=== PATIENT | male | born 1960 | race Caucasian/White ===

== ENCOUNTER 2024-12-04 18:58 | Emergency (ER) | payer OTHER, SELFPAY ==
--- NOTE | ~2024-12-04 | XR_ITS ---
CLINICAL HISTORY: picc line occlusion 1 view chest x-ray Comparison: None Findings: Right central line tip proximal SVC. Probable bilateral costophrenic angle scarring. No prior studies available for comparison. Heart size normal. No bony abnormality. Impression: Bilateral scarring without acute process This document has been electronically signed by: Omer Davis MD on 12/04/2024 19:53:25
--- NOTE | 2024-12-04 19:02 | ED_ITS ---
HPI - General Adult General Chief complaint: General Medical Stated complaint: pic line clogged Time Seen by Provider: 12/04/24 20:36 Related Data Allergies Allergy/AdvReac Type Severity Reaction Status Date / Time No Known Allergies Allergy Verified 12/04/24 19:08 PMFSH Social History Social History Smoked in Last 30 Days: No Use of substances other than those prescribed or required for medical reasons: No Advance Directives: No Advance Directives Information Provided: Yes Physical Exam ED Vital Signs: BMI result Body Mass Index 19.4 Course Course Course Narrative: This is a rapid medical exam performed by Glen King NP: Additional HPI, ROS, PE not included below will be deferred to primary provider. 64 yo male accompanied by with PMHx of bowel anastamosis with recent ostomy reversal (09/30), presents to the ED today due to PICC line in R arm being blocked. He states he attempted to flush it with saline and heparin flush. states this morning line was clear, but when hooking up for TPN, could not get fluid through due to occlusion . Plan: Labs, CXR, Medications Administered Discontinued Medications Generic Name Dose Route Start Last Admin Trade Name Freq PRN Reason Stop Dose Admin Alteplase, Recombinant 2 mg 12/04/24 21:01 12/04/24 21:24 Alteplase Cath Clear 2 Mg/2 Ml Vial INTRACATH 12/04/24 21:02 2 mg ONCE ONE Administration Alteplase, Recombinant 2 mg 12/04/24 22:38 12/04/24 23:16 Alteplase Cath Clear 2 Mg/2 Ml Vial INTRACATH 12/04/24 22:39 2 mg ONCE ONE Administration Medical Decision Making Lab Data 12/04/24 19:21 12/04/24 19:21 Labs: Lab Results 12/04/24 Range/Units 19:21 WBC 7.2 (4.8-10.8) X10*3/uL RBC 3.53 L (4.60-5.80) X10*6/uL Hgb 11.0 L (14.0-18.0) g/dl Hct 33.3 L (42.0-52.0) % MCV 94.3 (80.0-98.0) fL MCH 31.2 (27.0-33.0) pg MCHC 33.0 (31.0-36.0) g/dl RDW 13.6 (11.0-16.0) % Plt Count 303 (160-400) X10*3/uL MPV 10.0 (9.4-12.4) fL Immature Gran % (Auto) 0.3 (0.0-0.4) % Neut % (Auto) 75.6 H (45-73) % Lymph % (Auto) 12.7 L (20-40) % [place] % (Auto) 8.9 (2-11) % Eos % (Auto) 2.1 (0-4) % Baso % (Auto) 0.4 (0-2) % Lymph # (Auto) 0.9 L (1.2-4.9) X10*3/uL [place] # (Auto) 0.6 (0.1-1.2) X10*3/uL Eos # (Auto) 0.2 (0.0-0.4) X10*3/uL Baso # (Auto) 0.0 (0.0-0.2) X10*3/uL Abs Immat Gran (auto) 0.02 (0.00-0.03) X10*3/uL Absolute Neuts (auto) 5.4 (2.0-8.3) x10*3/uL Absolute Nucleated RBC 0.000 (0.0-0.012) X10*3/uL Nucleated RBC % (auto) 0.0 (0.0-0.2) /100WBC Sodium 140 (135-145) mmol/L Potassium 4.3 (3.3-5.1) mmol/L Chloride 104 (96-108) mmol/L Carbon Dioxide 26 (22-29) mmol/L Anion Gap 14 (12-20) BUN 25 H (9-16) mg/dL Creatinine 0.92 (0.5-1.4) mg/dL Estim Creat Clear Calc 62.4 Estimated GFR > 60 Random Glucose 82 (60-115) mg/dL Calcium 9.0 (8.4-10.2) mg/dL Total Bilirubin 0.7 (0.0-1.0) mg/dL AST 29 (5-37) U/L ALT 38 (0-40) U/L Alkaline Phosphatase 98 (39-117) U/L Total Protein 7.4 (6.5-8.0) g/dL Albumin 4.3 (3.5-5.0) g/dL Discharge Plan Discharge Clinical Impression: Occluded PICC line Patient Disposition: Home, Self-Care Instructions: PICC (Peripherally Inserted Central Catheter) (DC) Additional Instructions: We were unable to open occluded PICC line Follow up with your surgeon tomorrow for further care of the PICC line Interventions: ED Discharge Assessment Last Done: 12/05/24 00:24 Discharge Date/Time: 12/05/24 00:25 Print Language: Argentine
[2024-12-04 19:03] VITALS: BP 113/64; PULSE 84; RESP 18; TEMP 36.8; O2SAT 96; BMI 19.4
[2024-12-04 19:27] LABS: MANUAL DIFF FLAG NO
[2024-12-04 19:30] LABS: Basophils Percent Auto 0.4 % (0-2); Eosinophils Absolute Auto 0.2 X10*3/uL (0.0-0.4); Eosinophils Percent Auto 2.1 % (0-4); Hematocrit 33.3 % (42.0-52.0); Imm Gran Abs Auto 0.02 X10*3/uL (0.00-0.03); Imm Gran Pct Auto 0.3 % (0.0-0.4); Lymphocytes Absolute Auto 0.9 X10*3/uL (1.2-4.9); Lymphocytes Percent Auto 12.7 % (20-40); Mean Corpuscular Hemoglobin 31.2 pg (27.0-33.0); Mean Corpuscular Volume 94.3 fL (80.0-98.0); Monocytes Absolute Auto 0.6 X10*3/uL (0.1-1.2); Monocytes Percent Auto 8.9 % (2-11); Neutrophils Absolute Auto 5.4 x10*3/uL (2.0-8.3); Neutrophils Percent Auto 75.6 % (45-73); Platelet Count 303 X10*3/uL (160-400); Red Blood Count 3.53 X10*6/uL (4.60-5.80); Red Cell Distribution Width 13.6 % (11.0-16.0); White Blood Count 7.2 X10*3/uL (4.8-10.8)
[2024-12-04 19:43] LABS: Alanine Aminotransferase 38 U/L (0-40); Albumin Level 4.3 g/dL (3.5-5.0); Alkaline Phosphatase 98 U/L (39-117); Anion Gap 14 (12-20); Aspartate Amino Transferase 29 U/L (5-37); Bilirubin Total 0.7 mg/dL (0.0-1.0); Blood Urea Nitrogen 25 mg/dL (9-16); Carbon Dioxide 26 mmol/L (22-29); Chloride 104 mmol/L (96-108); Creatinine Clr Calc Pharmacy 62.4; Estimated Glomerular Filt Rate > 60; Glucose Random 82 mg/dL (60-115); Potassium 4.3 mmol/L (3.3-5.1); Sodium 140 mmol/L (135-145); Total Protein 7.4 g/dL (6.5-8.0)
[2024-12-04 20:00] VITALS: BP 107/61; PULSE 84; RESP 16; TEMP 36.7; O2SAT 97
--- OUTSIDE RECORDS SUMMARY | 2024-12-04 20:06 | XMS_ITS | Encounter Summary ---
Author Organization [facility] Address [address] [place] [address] Care Team Providers Care Battery Plate Assembler Name Role Phone Unavailable Primary Care Provider Unavailabl e Encounter Details Date Type Department Care Team (Late st Contact Info) Description 11/12/2024 Lab Requisition [facility] - Main Lab [address] [facility] [place] [address] Annemarie Charles MD [address] [facility] [place] [address] Fistula of intestine; Postprocedural hepatorenal syndrome Social History Tobacco Use Types Packs/Day Years Used Date Smoking Tobacco: Never Assessed Sex and Gender Information Value Date Recorded Sex Assigned at Not on file Legal Sex Male 7:59 AM EST Gender Identity Not on file Sexual Orientation Not on file documented as of this encounter Plan of Treatment Not on file documented as of this encounter Procedures Procedure Name Priority Date/Time Associated Diagnosis Comments CBC WITH AUTO DIFFERENTIAL Routine 11/12/2024 5:00 PM EDT Fistula of intestine Postprocedural hepatorenal syndrome CBC AND DIFFERENTIAL Routine 11/12/2024 5:00 PM EDT Fistula of intestine Postprocedural hepatorenal syndrome TRIGLYCERIDES Routine 11/12/2024 5:00 PM EDT Fistula of intestine Postprocedural hepatorenal syndrome PHOSPHORUS Routine 11/12/2024 5:00 PM EDT Fistula of intestine Postprocedural hepatorenal syndrome MAGNESIUM Routine 11/12/2024 5:00 PM EDT Fistula of intestine Postprocedural hepatorenal syndrome COMPREHENSIVE METABOLIC PANEL Routine 11/12/2024 5:00 PM EDT Fistula of intestine Postprocedural hepatorenal syndrome documented in this encounter Results * (ABNORMAL) CBC auto differential (11/12/2024 5:00 PM EDT) WBC 4.4(L) 4.8 - 10.8 K/mcL LAB [facility] RBC 3.50(L) 4.50 - 5.50 M/mcL LAB HEMETOLOGY METHOD 11/12/2024 7:06 PM [facility] Hemoglobin 10.9(L) 13.5 - 17.5 g/dL LAB HEMETOLOGY METHOD 11/12/2024 7:06 PM [facility] Hematocrit 34.1(L) 42.0 - 54.0 % LAB HEMETOLOGY METHOD 11/12/2024 7:06 PM [facility] MCV 98.3(H) 79.0 - 98.0 FL LAB HEMETOLOGY METHOD 11/12[facility]2024 7[facility] MCH 31.4 27.0 - 32.0 pcg LAB HEMETOLOGY METHOD 11/12/2024 7:06 PM [facility] MCHC 32.0 32.0 - 37.0 g/dL LAB HEMETOLOGY METHOD 11/12/2024 7:06 PM [facility] RDW 13.5 11.0 - 15.0 % LAB HEMETOLOGY METHOD 11/12/2024 7:06 PM [facility] Platelets 261 130 - 400 K/mcL LAB HEMETOLOGY METHOD 11/12/2024 7:06 PM [facility] MPV 11.7(H) 7.0 - 11.0 FL LAB HEMETOLOGY METHOD 11/12/2024 7:06 PM [facility] NRBC 0.0 <1.0 % LAB HEMETOLOGY METHOD 11/12/2024 7:06 PM [facility] NRBC Absolute 0.00 <0.10 K/mcL LAB HEMETOLOGY METHOD 11/12/2024 7:06 PM [facility] Neutrophils Relative 62.3 % LAB HEMETOLOGY METHOD 11/12/2024 7:06 PM [facility] Lymphocytes Relative 21.9 % LAB HEMETOLOGY METHOD 11/12/2024 7:06 PM [facility] Monocytes Relative 9.7 % LAB HEMETOLOGY METHOD 11/12/2024 7:06 PM [facility] Eosinophils Relative 4.8 % LAB HEMETOLOGY METHOD 11/12/2024 7:06 PM [facility] Basophils Relative 1.1 % LAB HEMETOLOGY METHOD 11/12/2024 7:06 PM [facility] Immature Granulocytes Relative 0.2 % LAB HEMETOLOGY METHOD 11/12/2024 7:06 PM [facility] Neutrophils Absolute 2.75 1.50 - 7.00 K/mcL LAB HEMETOLOGY METHOD 11/12/2024 7:06 PM [facility] Lymphocytes Absolute 0.97(L) 1.00 - 5.00 K/mcL LAB HEMETOLOGY METHOD 11/12/2024 7:06 PM [facility] Monocytes Absolute 0.43 0.20 - 1.00 K/mcL LAB HEMETOLOGY METHOD 11/12/2024 7:06 PM [facility] Eosinophils Absolute 0.21 0.00 - 0.50 K/mcL LAB HEMETOLOGY METHOD 11/12/2024 7:06 PM [facility] Basophils Absolute 0.05 0.00 - 0.20 K/mcL LAB HEMETOLOGY METHOD 11/12/2024 7:06 PM EDT [facility] Immature Granulocytes Absolute 0.01 0.00 - 0.03 K/[facility] LAB HEMETOLOGY METHOD 11/12/2024 7:06 PM EDT [facility] Blood Venous blood specimen / Unknown 11/12/2024 5:00 PM EDT 11/12/2024 7:01 PM EDT us Annemarie Charles MD LAB BLOOD ORDERABLES Final Resul t Performing Organization Address [facility]/ZIP Co de Phone Number [facility] [address] [place] [address], [place] [phone] * Triglycerides (11/12/2024 5:00 PM EDT) Triglycerides 29 0 - 150 mg/dL LAB CHEMISTRY METHOD 11/12/2024 7:33 PM EDT [facility] Blood Venous blood specimen / Unknown 11/12/2024 5:00 PM EDT 11/12/2024 7:01 PM EDT us Annemarie Charles MD LAB BLOOD ORDERABLES Final Resul t Performing Organization Address [facility] Co de Phone Number [facility] [address] [place] [address], [place] [phone] * (ABNORMAL) Phosphorus (11/12/2024 5:00 PM EDT) Phosphorus 4.9(H) 2.5 - 4.5 mg/dL LAB CHEMISTRY METHOD 11/12/2024 7:33 PM EDT [facility] Blood Venous blood specimen / Unknown 11/12/2024 5:00 PM EDT 11/12/2024 7:01 PM EDT us Annemarie Charles MD LAB BLOOD ORDERABLES Final Resul t Performing Organization Address City/[facility]/ZIP Co de Phone Number [facility] [address] [place] [address], [place] [phone] * Magnesium (11/12/2024 5:00 PM EDT) Pathologist [facility] Magnesium 2.0 1.9 - 2.6 mg/dL LAB CHEMISTRY METHOD 11/12/2024 7:33 PM EDT [facility] Blood Venous blood specimen / Unknown 11/12/2024 5:00 PM EDT 11/12/2024 7:01 PM EDT Annemarie Charles MD LAB BLOOD ORDERABLES Final Resul t Performing Organization Address [facility] Co de Phone Number [facility] [address] [place] [address], [place] [phone] * (ABNORMAL) Comprehensive metabolic panel (11/12/2024 5:00 PM EDT) [facility] Sodium 138 133 - 145 mmol/L LAB CHEMISTRY METHOD [facility]2024 7[facility] Potassium 4.3 3.5 - 5.5 mmol/L LAB CHEMISTRY METHOD 11/12/2024 7:33 PM [facility] Chloride 106 96 - 110 mmol/L LAB CHEMISTRY METHOD 11/12/2024 7:33 PM EDT [facility] CO2 26 21 - 32 mmol/L LAB CHEMISTRY METHOD 11/12/2024 7:33 PM [facility] Anion Gap 6 3 - 11 LAB CHEMISTRY METHOD 11/12/2024 7:33 PM [facility] Glucose 71 70 - 100 mg/dL LAB CHEMISTRY METHOD 11/12/2024 7:33 [facility] BUN 28(H) 5 - 25 mg/dL LAB CHEMISTRY METHOD 11/12/2024 7:33 PM [facility] Creatinine 0.90 0.70 - 1.30 mg/dL LAB CHEMISTRY METHOD 11/12/2024 7:33 PM [facility] eGFR 95 >=60 mL/min/1. 73m2 LAB CHEMISTRY METHOD 11/12/2024 7:33 PM [facility] Comment:Calculation based on the??Chronic Kidney Disease Epidemiology Collaboration (CKD-EPI) equation refit??without adjustment for race. BUN/Creatinine Ratio 31.1 LAB CHEMISTRY METHOD 11/12/2024 7:33 PM [facility] Calcium 8.7 8.5 - 10.5 mg/dL LAB CHEMISTRY METHOD 11/12/2024 7:33 PM [facility] AST (SGOT) 17 10 - 42 unit/L LAB CHEMISTRY METHOD 11/12/2024 7:33 PM [facility] ALT (SGPT) 28 10 - 60 unit/L LAB CHEMISTRY METHOD 11/12/2024 7:33 PM [facility] Alkaline Phosphatase 101 42 - 121 unit/L LAB CHEMISTRY METHOD 11/12/2024 7:33 PM [facility] Total Protein 6.9 6.0 - 8.0 g/dL LAB CHEMISTRY METHOD 11/12/2024 7:33 PM [facility] Albumin 3.6 3.2 - 5.0 g/dL LAB CHEMISTRY METHOD 11/12/2024 7:33 PM [facility] Total Bilirubin 0.6 0.0 - 1.4 mg/dL LAB CHEMISTRY METHOD 11/12/2024 7:33 PM [facility] Blood Venous blood specimen / Unknown 11/12/2024 5:00 PM EDT 11/12/2024 7:01 PM EDT us Annemarie Charles MD LAB BLOOD ORDERABLES Final Resul t [facility] [address] [place] [address], documented in this encounter Visit Diagnoses Diagnosis Fistula of intestine Fistula of intestine, excluding rectum and anus Postprocedural hepatorenal syndrome documented in this encounter
--- OUTSIDE RECORDS SUMMARY | 2024-12-04 20:06 | XMS_ITS | Referral Summary ---
Author Organization [facility] Address [address] [place] [address] Care Team Providers Care Mechanical Planner Name Role Phone Naomi Heaton Primary Care Provider [phone] Encounters Date Type Department Care Team Description 11/28/2024 Telephone [facility] [address] [place] [address] Spinning Lathe Operator Hydraulic: Rut Arguello, SHAHRIAR 11/27/2024 Telephone [facility] [address] [place] [address] Spinning Lathe Operator Hydraulic: Rut Arguello, RN 11/26/2024 Telephone [facility] [address] [place] [address] Spinning Lathe Operator Hydraulic: Rut Arguello, SHAHRIAR 11/25/2024 myChart [facility] Colorectal Surgery [address] [place] [address] Spinning Lathe Operator Hydraulic: Kassidy Rutherford PA Most reecent pictures of the wound 11/22/2024 Telephone [facility] [address] [place] [address] Spinning Lathe Operator Hydraulic: Rut Arguello, RN 11/21/2024 Telephone [facility] [address] [place] [address] Spinning Lathe Operator Hydraulic: Rut Arguello, RN 11/20/2024 10:45 AM EDT Follow-Up [facility] [address] [place] [phone] Spinning Lathe Operator Hydraulic: Annemarie Lopez MD MPH Enterocutaneous fistula (Primary Dx) 11/15/2024 Telephone [facility] [address] [place] [phone] Spinning Lathe Operator Hydraulic: Naomi Orta, SHAHRIAR 11/15/2024 Telephone [facility] [address] [place] [phone] Spinning Lathe Operator Hydraulic: Naomi Orta, SHAHRIAR 11/14/2024 Results Follow-Up [facility] [address] [place] [phone] Spinning Lathe Operator Hydraulic: Kassidy Rutherford PA 11/14/2024 Telephone [facility] [address] [place] [phone] Spinning Lathe Operator Hydraulic: Naomi Orta, SHAHRIAR 11/11/2024 Telephone [facility] [address] [place] [phone] Spinning Lathe Operator Hydraulic: Naomi Orta, SHAHRIAR 11/11/2024 Telephone [facility] [address] [place] [phone] Spinning Lathe Operator Hydraulic: Rut Arguello, RN 11/08/2024 8:42 AM EDT - 11/08/2024 11:59 PM EDT Hospital Encounter [facility] CT Scan [address] [place] [address] Discharge Disposition: Home or Self Care (01) 11/05/2024 Telephone [facility] [address] [place] [phone] Spinning Lathe Operator Hydraulic: Naomi Orta, SHAHRIAR 11/05/2024 Documentation [facility] [address] [place] [phone] Spinning Lathe Operator Hydraulic: Rut Arguello, SHAHRIAR 11/01/2024 Orders Only [facility] Interventional Radiology [address] [place] [phone] Catalino Mccauley MD 11/01/2024 Orders Only [facility] [address] [place] [phone] Spinning Lathe Operator Hydraulic: Rut Arguello, RN Enterocutaneous fistula (Primary Dx) 11/01/2024 Telephone [facility] [address] [place] [phone] Spinning Lathe Operator Hydraulic: Kassidy Rutherford PA 10/31/2024 2:00 PM EDT Follow-Up [facility] [address] [place] [phone] Spinning Lathe Operator Hydraulic: Kassidy Rutherford PA Enterocutaneous fistula (Primary Dx) 10/29/2024 Telephone [facility] [address] [place] [phone] Spinning Lathe Operator Hydraulic: Rut Arguello, SHAHRIAR 10/29/2024 myChart Message [facility] [address] [place] [phone] Spinning Lathe Operator Hydraulic: Rut Arguello, RN following up on wound vac 10/29/2024 Telephone [facility] [address] [place] [phone] Spinning Lathe Operator Hydraulic: Rut Arguello, SHAHRIAR 10/11/2024 4:26 AM EDT - 10/22/2024 2:02 PM EDT Hospital [facility] [address] [place] [phone] Bre Frances, Rishabh Ferreira MD Alavi, Karim, MD MPH Wound dehiscence (Primary Dx); Enterocutaneous fistula Discharge Disposition: Home with Services () 10/10/2024 Orders Only [facility] - External Imaging [address] [place] [address] Radiology, External 10/10/2024 Orders Only [facility]- [facility] Building Mammography [address] [facility], 5th floor [facility] [address] Lisandro Leos MD 10/10/2024 Telephone [facility] [address] [place] [phone] Spinning Lathe Operator Hydraulic: Naomi Orta, SHAHRIAR 10/10/2024 Telephone [facility] [address] [place] [phone] Spinning Lathe Operator Hydraulic: Naomi Orta, RN 10/10/2024 myChart Message [facility] [address] [place] [phone] Spinning Lathe Operator Hydraulic: Naomi Orta, SHAHRIAR Photo 09/30/2024 10:48 AM EDT - 10/08/2024 2:44 PM EDT Hospital Encounter [address] [phone] Annemarie Charles MD MPH Pre-op evaluation; Ileostomy in place Discharge Disposition: Home or Self Care () 09/30/2024 12:15 PM EDT - 09/30/2024 5:15 PM EDT Surgery [facility] Operating Room [address] [place] [phone] nAnemarie Charles MD MPH CLOSURE OF ENTEROSTOMY OF SMALL INTESTINE, WITH RESECTION AND COLORECTAL ANASTOMOSIS, CLOSURE OF JOHNNY TYPE PROCEDURE [93162 (CPT??)] 09/30/2024 1:49 PM EDT Anesthesia Event [facility] Operating Room [address] [place] [address] Brandon Lloyd MD Connolly, Mariel, DO 09/24/2024 Orders Only [facility] [address] [place] [address] Spinning Lathe Operator Hydraulic: Annemarie Lopez MD MPH 09/12/2024 2:15 PM EST Telehealth [facility] [address] [place] [address] Spinning Lathe Operator Hydraulic: Annemarie Lopez MD MPH Ileostomy in place (Primary Dx) from Last 3 Months Allergies No known active allergies Medications atorvastatin (LIPITOR) 10 mg tablet SMARTSI Tablet(s) By Mouth Daily Active multivitamin (THERAGRAN) tablet Take 1 tablet by mouth once a day. Active omeprazole (PriLOSEC) 40 mg capsule Take 40 mg by mouth every 12 hours. Active Active Problems Problem Noted Date Diagnosed Date Encounter for management of vacuum-assisted closure (VAC) of wound 10/22/2024 Enterocutaneous fistula 10/15/2024 Wound dehiscence 10/11/2024 Resolved Problems Problem Noted Date Diagnosed Date Resolved Date Ileostomy in place 09/12/2024 Immunizations Immunization Administration Dates Next Due INFLUENZA, SPLIT VIRUS, TRIVALENT, PF 10/11/2024 (Deferred: Patient Refused) Social History Tobacco Use Types Packs/Day Years Used Date Smoking Tobacco: Former Cigarettes 1 24 S tarted: 1999 Smokeless Tobacco: Never Tobacco Cessation:Counseling Given: Not Answered Alcohol Use Standard Drinks/Week Comments Not Currently 0 (1 standard drink = 0.6 oz pur e alcohol) [facility] Utilities Answer Date Recorded In the past 12 months has [employer], gas, oil, or water [employer] threatened to shut off services in your home? No 10/01/2024 Hunger Vital Sign Answer Date Recorded Within the past 12 months, y ou worried that your food would run out before you got the money to buy more. Never true 10/02/19 25 Within the past 12 months, t he food you bought just didn't last and you didn't have money to get more. Never true 10/01/2024 Transportation Answer Date Recorded In the past 12 months, has l ack of reliable transportation kept you from medical appointments, meetings, work or from getting things needed for daily living? No 10/01/2024 Housing Answer Date Recorded Housing Risk Low 2 10/01/2024 Housing Risk Medium Not on file 10/01/2024 Housing Risk High Not on file 10/01/2024 What is your living situation today? [facility] 10/01/2024 Sex and Gender Information Value Date Recorded Sex Assigned at Male 09/09/2024 5:54 PM EST Legal Sex Male 8:43 AM EST Gender Identity Male 09/09/2024 5:54 PM EST Sexual Orientation Choose not to disclose 2024 5:54 PM EST Last Filed Vital Signs Vital Sign Reading Time Taken Comments Blood Pressure 111/73 11/20/2024 10:37 AM EDT Pulse 76 11/20/2024 10:37 AM EDT Temperature 36.7 ??C (98 ??F) 11/20/2024 10:37 AM EDT Respiratory Rate 16 11/20/2024 10:37 AM EDT Oxygen Saturation 98% 11/20/2024 10:37 AM EDT Inhaled Oxygen Concentration - - Weight 54 kg (119 lb) 11/20/2024 10:37 AM EDT Height 167.6 cm (5' 5.98 ) 11/20/2024 10:37 AM E DT Body Mass Index 19.22 11/20/2024 10:37 AM EDT Plan of Treatment Upcoming Encounters Date Type Department Care Team (Late st Contact Info) Description 12/11/2024 8:15 AM EDT Follow-Up [facility] [address] [place] [phone] Spinning Lathe Operator Hydraulic: Annemarie Lopez MD MPH [address] [place] [phone] Procedures * Due to [place] state law, this organization might not be sharing negative HIV tests. Procedure Name Priority Date/Time Associated Diagnosis Comments LAB - SCANNED 11/26/2024 LAB - SCANNED 11/12/2024 CT ABDOMEN PELVIS W CONTRAST STAT 11/08/2024 9:29 AM EDT Enterocutaneous fistula POCT GLUCOSE Routine 10/22/2024 5:44 AM EDT PHOSPHORUS Routine 10/22/2024 5:34 AM EDT MAGNESIUM Routine 10/22/2024 5:34 AM EDT BASIC METABOLIC PANEL Routine 10/22/2024 5:34 AM EDT POCT GLUCOSE Routine 10/21/2024 11:51 PM EDT POCT GLUCOSE Routine 10/21/2024 4:58 PM EDT POCT GLUCOSE Routine 10/21/2024 12:21 PM EDT POCT GLUCOSE Routine 10/21/2024 5:48 AM EDT PHOSPHORUS Routine 10/21/2024 5:25 AM EDT MAGNESIUM Routine 10/21/2024 5:25 AM EDT BASIC METABOLIC PANEL Routine 10/21/2024 5:25 AM EDT POCT GLUCOSE Routine 10/20/2024 11:47 PM EDT POCT GLUCOSE Routine 10/20/2024 12:21 PM EDT PHOSPHORUS Routine 10/20/2024 6:01 AM EDT MAGNESIUM Routine 10/20/2024 6:01 AM EDT BASIC METABOLIC PANEL Routine 10/20/2024 6:01 AM EDT POCT GLUCOSE Routine 10/20/2024 5:25 AM EDT POCT GLUCOSE Routine 10/19/2024 11:49 PM EDT TRIGLYCERIDES Routine 10/19/2024 6:17 PM EDT POCT GLUCOSE Routine 10/19/2024 5:40 PM EDT POCT GLUCOSE Routine 10/19/2024 12:04 PM EDT POCT GLUCOSE Routine 10/19/2024 5:31 AM EDT PHOSPHORUS Routine 10/19/2024 2:42 AM EDT MAGNESIUM Routine 10/19/2024 2:42 AM EDT BASIC METABOLIC PANEL Routine 10/19/2024 2:42 AM EDT POCT GLUCOSE Routine 10/19/2024 12:01 AM EDT POCT GLUCOSE Routine 10/18/2024 6:45 PM EDT POCT GLUCOSE Routine 10/18/2024 12:07 PM EDT POCT GLUCOSE Routine 10/18/2024 5:22 AM EDT PHOSPHORUS Routine 10/18/2024 2:54 AM EDT MAGNESIUM Routine 10/18/2024 2:54 AM EDT BASIC METABOLIC PANEL Routine 10/18/2024 2:54 AM EDT POCT GLUCOSE Routine 10/17/2024 11:47 PM EDT POCT GLUCOSE Routine 10/17/2024 5:39 PM EDT POCT GLUCOSE Routine 10/17/2024 1:29 PM EDT POCT GLUCOSE Routine 10/17/2024 5:17 AM EDT PHOSPHORUS Routine 10/17/2024 3:32 AM EDT MAGNESIUM Routine 10/17/2024 3:32 AM EDT BASIC METABOLIC PANEL Routine 10/17/2024 3:32 AM EDT POCT GLUCOSE Routine 10/16/2024 11:59 PM EDT POCT GLUCOSE Routine 10/16/2024 5:35 PM EDT POCT GLUCOSE Routine 10/16/2024 12:02 PM EDT POCT GLUCOSE Routine 10/16/2024 5:29 AM EDT PHOSPHORUS Routine 10/16/2024 3:17 AM EDT MAGNESIUM Routine 10/16/2024 3:17 AM EDT BASIC METABOLIC PANEL Routine 10/16/2024 3:17 AM EDT POCT GLUCOSE Routine 10/15/2024 11:46 PM EDT POCT GLUCOSE Routine 10/15/2024 6:36 PM EDT POCT GLUCOSE Routine 10/15/2024 12:12 PM EDT POCT GLUCOSE Routine 10/15/2024 4:49 AM EDT PHOSPHORUS Routine 10/15/2024 2:50 AM EDT MAGNESIUM Routine 10/15/2024 2:50 AM EDT BASIC METABOLIC PANEL Routine 10/15/2024 2:50 AM EDT POCT GLUCOSE Routine 10/14/2024 11:33 PM EDT POCT GLUCOSE Routine 10/14/2024 6:21 PM EDT POCT GLUCOSE Routine 10/14/2024 12:28 PM EDT POCT GLUCOSE Routine 10/14/2024 5:16 AM EDT PHOSPHORUS Routine 10/14/2024 3:02 AM EDT MAGNESIUM Routine 10/14/2024 3:02 AM EDT BASIC METABOLIC PANEL Routine 10/14/2024 3:02 AM EDT POCT GLUCOSE Routine 10/13/2024 11:32 PM EDT POCT GLUCOSE Routine 10/13/2024 5:29 PM EDT POCT GLUCOSE Routine 10/13/2024 11:57 AM EDT POCT GLUCOSE Routine 10/13/2024 6:16 AM EDT PHOSPHORUS Routine 10/13/2024 3:06 AM EDT MAGNESIUM Routine 10/13/2024 3:06 AM EDT BASIC METABOLIC PANEL Routine 10/13/2024 3:06 AM EDT POCT GLUCOSE Routine 10/12/2024 11:08 PM EDT POCT GLUCOSE Routine 10/12/2024 5:35 PM EDT POCT GLUCOSE Routine 10/12/2024 12:05 PM EDT TRIGLYCERIDES Add-On 10/12/2024 10:17 AM EDT HEPATIC FUNCTION PANEL Add-On 10/12/2024 10:17 AM EDT PHOSPHORUS STAT 10/12/2024 10:17 AM EDT MAGNESIUM STAT 10/12/2024 10:17 AM EDT BASIC METABOLIC PANEL STAT 10/12/2024 10:[address] [facility] IV STRAIGHT LINE PRESS SETTER PICC Routine 10/11/2024 4:52 PM EDT SMEAR REVIEW STAT 10/11/2024 6:00 AM EDT PHOSPHORUS STAT Add-on 10/11/2024 6:00 AM EDT MAGNESIUM STAT Add-on 10/11/2024 6:00 AM EDT BASIC METABOLIC PANEL STAT 10/11/2024 6:00 AM EDT CBC AUTO DIFFERENTIAL STAT 10/11/2024 6:00 AM EDT AMB EXTERNAL CT ABDOMEN, OUTSIDE RESULT 10/10/2024 POCT GLUCOSE Routine 10/08/2024 6:27 AM EDT PHOSPHORUS Timed 10/08/2024 5:54 AM EDT MAGNESIUM Timed 10/08/2024 5:54 AM EDT BASIC METABOLIC PANEL Timed 10/08/2024 5:54 AM EDT POCT GLUCOSE Routine 10/07/2024 11:42 PM EDT POCT GLUCOSE Routine 10/07/2024 5:45 PM EDT POCT GLUCOSE Routine 10/07/2024 12:01 PM EDT POCT GLUCOSE Routine 10/07/2024 8:11 AM EDT TRIGLYCERIDES Timed 10/07/2024 5:00 AM EDT PHOSPHORUS Timed 10/07/2024 5:00 AM EDT MAGNESIUM Timed 10/07/2024 5:00 AM EDT BASIC METABOLIC PANEL Timed 10/07/2024 5:00 AM EDT SMEAR REVIEW STAT 10/06/2024 10:08 AM EDT CBC STAT 10/06/2024 10:08 AM EDT TRIGLYCERIDES STAT Add-on 10/06/2024 6:06 AM EDT PHOSPHORUS Timed 10/06/2024 6:06 AM EDT MAGNESIUM Timed 10/06/2024 6:06 AM EDT BASIC METABOLIC PANEL Timed 10/06/2024 6:06 AM EDT MANUAL DIFFERENTIAL Routine 10/05/2024 3 :56 AM EDT PHOSPHORUS Routine 10/05/2024 3:56 AM EDT MAGNESIUM Routine 10/05/2024 3:56 AM EDT BASIC METABOLIC PANEL Routine 10/05/2024 3:56 AM EDT CBC AUTO DIFFERENTIAL Routine 10/05/2024 3:[address] [facility] IV STRAIGHT LINE PRESS SETTER PICC Routine 10/04/2024 6:30 PM EDT HEPATIC FUNCTION PANEL STAT 10/04/2024 11:19 AM EDT PREALBUMIN STAT 10/04/2024 11:19 AM EDT XR CHEST 1 VW STAT 10/04/2024 9:52 AM EDT MANUAL DIFFERENTIAL STAT 10/04/2024 8 :58 AM EDT CBC AUTO DIFFERENTIAL STAT 10/04/2024 8:58 AM EDT MANUAL DIFFERENTIAL Routine 10/04/2024 4 :52 AM EDT PHOSPHORUS Routine 10/04/2024 4:52 AM EDT MAGNESIUM Routine 10/04/2024 4:52 AM EDT BASIC METABOLIC PANEL Routine 10/04/2024 4:52 AM EDT CBC Routine 10/04/2024 4:52 AM EDT HEMATOCRIT Routine 10/01/2024 9:56 AM EDT POTASSIUM Routine 10/01/2024 4:09 AM EDT HEMATOCRIT Routine 10/01/2024 4:09 AM EDT TISSUE EXAM Routine 09/30/2024 4:03 PM ED[address] Ileostomy in place LA CLOSE ENTEROSTOMY,RESEC+CO LOREC ANAS 09/30/2024 1:34 PM EDT Ileostomy in place Special Needs NO PREP, WILL NEED ALL LABS INCLUDING NUTRITION LABS, NEED HIS LATESTST CT AND OPERATI=VE NOTES FROM [facility], NEED LATEST COLO REPORT FROM [facility], TELEVISIT PRIOR TO SURGERY, 3-4 HRS CBC AUTO DIFFERENTIAL Routine 09/24/2024 10:50 AM EST BASIC METABOLIC PANEL Routine 09/24/2024 10:50 AM EST LAB - SCANNED 09/24/2024 LAB - SCANNED 09/24/2024 HM COLONOSCOPY 06/06/[address] CHEST, OUTSIDE RESULT 10/09/2023 from Last 3 Months or Most Recently Relevant to Health Maintenance Results * Due to [place] state law, this organization might not be sharing negative HIV tests. * LAB - SCANNED (11/26/2024) Only the most recent of4 resultswithin the time period is included. us Onbase Scan [facility] LAB HISTORICAL RESULTS Final Result * CT Abdomen Pelvis with Contrast (11/08/2024 9:29 AM EDT) Anatomical Region Laterality Modality Body Computed Tomogra phy 11/08/2024 11:2 2 AM EDT Impressions 11/08/2024 12:28 PM EDT 1. ??Postsurgical changes status post partial colectomy and ileocolonic anastomosis. 2. ??Mild diffuse small bowel distention and enhancement, could represent reactive ileus/enteritis. 3. ??Mild soft tissue thickening at the right abdominal wall at the site of previous ileostomy. ??Complete interval resolution of previously seen abdominal wall fluid collections. ??No evidence of enterocutaneous fistula. 4. ??Findings suggestive of proctitis and cystitis. 5. ??Small volume pelvic free fluid, likely reactive. If this radiology report contains a blank impression section, it is an incomplete radiology report. ??Please contact the interpreting radiologist or applicable radiology division as soon as possible to obtain the completed interpretation. ? Workstation ID: [id number] Narrative 11/08/2024 12:28 PM EDT EXAMINATION: CT ABDOMEN PELVIS W CONTRAST INDICATION: Enterocutaneous fistula ADDITIONAL INFORMATION: Status post ileostomy reversal, colorectal Anastomosis, Closure Of Johnny Type Procedure ??on 09/30/2024 TECHNIQUE: Images of the abdomen and pelvis were obtained with intravenous contrast. Coronal and sagittal reformats were generated. COMPARISON: Outside hospital CT abdomen 10/10/2024, 02/04/2024 (reports not available) ?? FINDINGS: LOWER THORAX: Minimal basilar subsegmental atelectasis. ??No pleural effusion. HEPATOBILIARY:No focal hepatic lesions identified within the limitations of phase of imaging. No intrahepatic or extrahepatic biliary dilatation. ??Scattered hepatic cysts. ??Patent hepatic and portal veins. GALLBLADDER: No gallbladder distention. SPLEEN: No splenomegaly. PANCREAS: No inflammation or ductal dilatation. ADRENAL GLANDS: No nodules. KIDNEYS AND URETERS: Symmetric renal size and enhancement. ??No nephrolithiasis or hydronephrosis. ??Right renal cortical and parapelvic cysts. ??Ureters are decompressed. GI TRACT: Stomach is not distended. ??Status post partial colectomy with ileocolonic anastomosis in the transverse colon. ??There is mild diffuse dilatation and enhancement of small bowel, maximum diameter 3.0 cm, no distinct transition point identified. ??There is diffuse wall thickening and edema about the rectosigmoid. PERITONEUM AND RETROPERITONEUM:No free air. ??Small volume pelvic free fluid. LYMPH NODES: A few small subcentimeter mesenteric and retroperitoneal lymph nodes, nonspecific. PELVIC ORGANS AND BLADDER: The urinary bladder is under distended with diffuse wall thickening. VASCULATURE: The abdominal aorta is nonaneurysmal. The ??inferior vena cava is unremarkable. ??Diffuse atherosclerotic disease. ??Chronically occluded bilateral internal iliac arteries. BONES AND SOFT TISSUES: No acute osseous abnormality. ??Degenerative changes in the spine. ??Right abdominal wall postsurgical changes and soft tissue thickening at the site of previous ileostomy. ??Complete interval resolution of previously seen abdominal wall fluid collections. ??No evidence of fistulous communication with subjacent bowel loops. Resulting Agency Comment [id number] Procedure Note Stephanie Regan MD - 11/08/2024 EXAMINATION: CT ABDOMEN PELVIS W CONTRAST INDICATION: Enterocutaneous fistula ADDITIONAL INFORMATION: Status post ileostomy reversal, colorectalAnastomosis, Closure Of Johnny Type Procedure on 09/30/2024 TECHNIQUE: Images of the abdomen and pelvis were obtained with intravenouscontrast. Coronal and sagittal reformats were generated. COMPARISON: Outside hospital CT abdomen 10/10/2024, 02/04/2024 (reportsnot available) FINDINGS: LOWER THORAX: Minimal basilar subsegmental atelectasis. No pleuraleffusion. HEPATOBILIARY:No focal hepatic lesions identified within the limitationsof phase of imaging. No intrahepatic or extrahepatic biliary dilatation.Scattered hepatic cysts. Patent hepatic and portal veins. GALLBLADDER: No gallbladder distention. SPLEEN: No splenomegaly. PANCREAS: No inflammation or ductal dilatation. ADRENAL GLANDS: No nodules. KIDNEYS AND URETERS: Symmetric renal size and enhancement. Nonephrolithiasis or hydronephrosis. Right renal cortical and parapelviccysts. Ureters are decompressed. GI TRACT: Stomach is not distended. Status post partial colectomy withileocolonic anastomosis in the transverse colon. There is mild diffusedilatation and enhancement of small bowel, maximum diameter 3.0 cm, nodistinct transition point identified. There is diffuse wall thickeningand edema about the rectosigmoid. PERITONEUM AND RETROPERITONEUM:No free air. Small volume pelvic freefluid. LYMPH NODES: A few small subcentimeter mesenteric and retroperitoneallymph nodes, nonspecific. PELVIC ORGANS AND BLADDER: The urinary bladder is under distended withdiffuse wall thickening. VASCULATURE: The abdominal aorta is nonaneurysmal. The inferior vena cavais unremarkable. Diffuse atherosclerotic disease. Chronically occludedbilateral internal iliac arteries. BONES AND SOFT TISSUES: No acute osseous abnormality. Degenerativechanges in the spine. Right abdominal wall postsurgical changes and softtissue thickening at the site of previous ileostomy. Complete intervalresolution of previously seen abdominal wall fluid collections. Noevidence of fistulous communication with subjacent bowel loops. IMPRESSION: 1. Postsurgical changes status post partial colectomy and ileocolonicanastomosis. 2. Mild diffuse small bowel distention and enhancement, could representreactive ileus/enteritis. 3. Mild soft tissue thickening at the right abdominal wall at the site ofprevious ileostomy. Complete interval resolution of previously seenabdominal wall fluid collections. No evidence of enterocutaneousfistula. 4. Findings suggestive of proctitis and cystitis. 5. Small volume pelvic free fluid, likely reactive. If this radiology report contains a blank impression section, it is anincomplete radiology report. Please contact the interpreting radiologistor applicable radiology division as soon as possible to obtain thecompleted interpretation. Workstation ID: [id number] Kassidy [facility] CT PROCEDURES Final Result * (ABNORMAL) POCT Glucose, interfaced (10/22/2024 5:44 AM EDT) Only the most recent of44 resultswithin the time period is included. Glucose, POCT 109(H) 70 - 99 mg/dL 10/22/2024 5:46 AM EDT [facility] Comment: The veneer manufacturer has not determined the efficacy of this test in Critically ill patients. ??[facility] defines Critically ill patients for the purpose of blood glucose monitoring (BGM) by glucometer, as patients meeting one or more of the following criteria: Hypotension- non-ICU patients (systolic blood pressure Less than 90 mmHg) due to shock Hypotension -ICU patients ??(Mean Arterial Pressure (MAP) <60 mmHg or systolic blood pressure < 90 mmHg due to shock Patients receiving Vasopressors (phenylephrine, vasopressin or norepinephrine) Anasarca In all locations, BGM test results should not be relied upon in the above situations, unless these results confirmed with lab-based glucose values. Blood 10/22/2024 5:44 AM EDT 10/22/2024 5:46 AM EDT us Annemarie Charles MD MPH LAB POCT ORDERABLES - DEVICE Final Result Performing Organization Address City/[facility] Co de Phone Number [facility] [address] [place] [address], [place] * Phosphorus (10/22/2024 5:34 AM EDT) Only the most recent of17 resultswithin the time period is included. Pathologist [facility] Phosphorus 3.8 2.5 - 4.5 mg/dL 10/22/2024 7:09 AM EDT [facility] Blood Implantable venous catheter submitted as specimen / Unknown Existing Catheter / Unknown 10/22/2024 5:34 AM EDT 10/22/2024 5:52 AM EDT us Annemarie Charles MD MPH LAB BLOOD ORDERABLES Final Re sult Performing Organization Address City/[facility] Co de Phone Number [facility] [address] [place] [address], [place] * Magnesium (10/22/2024 5:34 AM EDT) Only the most recent of17 resultswithin the time period is included. Pathologist [facility] MG 2.2 1.6 - 2.4 mg/dL 10/22/2024 7:09 AM EDT [facility] Blood Implantable venous catheter submitted as specimen / Unknown Existing Catheter / Unknown 10/22/2024 5:34 AM EDT 10/22/2024 5:52 AM EDT us Annemarie Charles MD MPH LAB BLOOD ORDERABLES Final Re sult [facility] [address] [place] [address], [place] * (ABNORMAL) Basic metabolic panel (10/22/2024 5:34 AM EDT) Only the most recent of18 resultswithin the time period is included. Pathologist [facility] NA 139 135 - 145 mmol/L 10/22/2024 7:09 AM EDT [facility] K 4.2 3.5 - 5.3 mmol/L 10/22/2024 7:09 AM EDT [facility] Cl 102 98 - 107 mmol/L 10/22/2024 7:09 AM EDT [facility] CO2 27 22 - 32 mmol/L 10/22/2024 7:09 AM EDT [facility] BUN 21 7 - 23 mg/dL 10/22/2024 7:09 AM EDT [facility] Creatinine 0.69 0.60 - 1.30 mg/dL 10/22/2024 7:09 AM EDT [facility] Glucose 104(H) 65 - 99 mg/dL 10/22/2024 7:09 AM EDT [facility] Calcium 9.3 8.6 - 10.5 mg/dL 10/22/2024 7:09 AM EDT [facility] Anion Gap 10 5 - 15 10/22/2024 7:09 AM EDT [facility] eGFR >90 >=60 mL/min/1. 73m2 10/22/2024 7:09 AM EDT [facility] Comment:The estimated glomer ular filtration rate (eGFR) is calculated using a new formula developed by the NKF-ASN task force to eliminate race-based correction factors. The new formula uses serum/plasma creatinine, age, and gender to determine eGFR. A value below 60mls/min might indicate kidney disease and will be flagged. For additional information, see Dion et al, Am J Kidney Dis. 2021;79(2):268- 288, A Unifying Approach for GFR estimation: Recommendations of the NKF-ASN Task Force on Reassessing the Inclusion of Race in Diagnosing Kidney Disease . Blood Implantable venous catheter submitted as specimen / Unknown Existing Catheter / Unknown 10/22/2024 5:34 AM EDT 10/22/2024 5:52 AM EDT us Annemarie Charles MD MPH LAB BLOOD ORDERABLES Final Re sult Performing Organization Address City/[facility]/ZIP Co de Phone Number [facility] [address] [place] [address], [place] * Triglyceride (10/19/2024 6:17 PM EDT) Only the most recent of4 resultswithin the time period is included. Triglycerides 73 <=149 mg/dL 10/19/2024 7:06 PM EDT [facility] Blood Implantable venous catheter submitted as specimen / Unknown Venipuncture / Unknown 10/19/2024 6:17 PM EDT 10/19/2024 6:32 PM EDT Annemarie Charles MD MPH LAB BLOOD ORDERABLES Final Re sult Performing Organization Address City/[facility] Co de Phone Number [facility] [address] [place] [address], [place] * (ABNORMAL) Hepatic function panel (10/12/2024 10:17 AM EDT) Only the most recent of2 resultswithin the time period is included. Total Protein 6.6 6.0 - 8.0 g/dL 10/12/2024 12:12 PM EDT [facility] Albumin 3.6 3.5 - 5.2 g/dL 10/12/2024 12:12 PM EDT [facility] Globulin, Total 3.0 2.1 - 4.2 g/dL 10/12/2024 12:12 PM EDT [facility] Bilirubin, Total 0.3 0.2 - 1.2 mg/dL 10/12/2024 12:12 PM EDT [facility] Bilirubin, Direct 0.1 <=0.4 mg/dL 10/12/2024 12:12 PM EDT [facility] Alkaline Phosphatase 107 35 - 129 U/L 10/12/2024 12:12 PM EDT [facility] AST 38 10 - 40 U/L 10/12/2024 12:12 PM EDT [facility] ALT 55(H) 10 - 40 U/L 10/12/2024 12:12 PM EDT [facility] Bilirubin, Indirect 0.20 <=0.70 mg/dL 10/12/2024 12:12 PM EDT [facility] A/G Ratio 1.2(L) 1.5 - 3.0 10/12/2024 12:12 PM EDT [facility] Blood Implantable venous catheter submitted as specimen / Unknown Venipuncture / Unknown 10/12/2024 10:17 AM EDT 10/12/2024 10:26 AM EDT us Annemarie Charles MD MPH LAB BLOOD ORDERABLES Final Re sult [facility] [address] [place] [address], [place] * WATER PUMPER PICC and Midline (10/11/2024 4:52 PM EDT) Only the most recent of2 resultswithin the time period is included. Shania Quigley RN - 10/11/2024 4:52 PM EDT Shania Medina RN ? 10/11/2024 ??4:58 PM PICC line insertion Date/Time: 10/11/2024 4:52 PM Performed by: Shania Medina RN Provider type: External RN Vendor ??Reason for Insertion: total parenteral nutrition ?Successful placement: yes ?? Byram Protocol ??Patient identity confirmed: ??Name and with patient ??Written consent obtained?: yes ?Procedure consent matches procedure to be performed: ??Yes ??All relevant documents/tests are correctly identified, labeled, and matched to patient: ??Yes ??Relevant tests/ Imaging studies available/reviewed: ??Yes ??Correct site marked: ??N/A ??Required blood products, implants, devices and special equipment available: ??Yes ??Immediately prior to the procedure a time out was called: ??Yes Pre-Procedure Central Line Bundle ??Sterile barrier technique: All Elements of full barrier protection used ?Skin preparation: ??ChloraPrep ??Ultrasound: Sterile sheath and gel used ?? Site Assessment ??Vein Accessed: ??Right deep brachial ??Initial Arm Circumference (cm): ??23 Procedure Details ??Local Anesthetic: ??Injectable ??Ultrasound guidance: yes ?Number of attempts: ??1 ??Blood return in all lumens?: Yes ?All lumens flush freely?: Yes ?Catheter Secured: ??Catheter securement device Device Details ??Catheter Type: ??Bard PowerPICC Sherlock ECG Tip ??Catheter Lumens: ??Triple lumen ??Catheter Size (fr): ??5 ??Lot #: ??[id number] ??Catheter Total Length (cm): ??40 ??Catheter External Length (cm): ??0 Post-Procedure Central Line Bundle ??Guidewire Removal Confirmed?: Yes ?All Ports Capped?: Yes ?Verification of Line Placement: ??ECG guidance system ??Dressing Applied: Antimicrobial Post-Procedure Details ??Patient tolerance of procedure: ??Tolerated well, no immediate complications ??Significant events: ??None ??Plan: ??PICC line ready for immediate use ??Handoff Report Given to: ??Anne Marie Veras RN us Annemarie Charles MD MPH IV THERAPY ORDERABLES Final R esult * (ABNORMAL) Smear Review (10/11/2024 6:00 AM EDT) Only the most recent of2 resultswithin the time period is included. Pathologist [facility] Platelet Estimate Increased (A) Adequate 10/11/2024 6:51 AM EDT [facility] RBC Morphology Normal Normal, No clinically significant RBC morphology present (ICSH guidelines, 2015). 10/11/2024 6:51 AM EDT [facility] Blood Structure of peripheral vein / Unknown Venipuncture / Unknown 10/11/2024 6:00 AM EDT 10/11/2024 6:10 AM EDT us Bre Frances DO LAB BLOOD ORDERABLES Final Result [facility] [address] [place] [address], * (ABNORMAL) CBC Auto Differential (10/11/2024 6:00 AM EDT) Only the most recent of4 resultswithin the time period is included. Pathologist [facility] WBC 7.4 3.8 - 10.8 10*3/uL 10/11/2024 6:51 AM EDT [facility] RBC 3.15(L) 4.20 - 5.80 10*6/uL 10/11/2024 6:51 AM EDT [facility] Hemoglobin 9.7(L) 13.2 - 17.1 g/dL 10/11/2024 6:51 AM EDT [facility] Hematocrit 30.3(L) 38.5 - 50.0 % 10/11/2024 6:51 AM EDT [facility] MCV 96.2 80.0 - 100.0 fL 10/11/2024 6:51 AM EDT [facility] MCH 30.8 27.0 - 33.0 pg 10/11/2024 6:51 AM [facility] MCHC 32.0 32.0 - 36.0 g/dL 10/11/2024 6:51 AM EDT [facility] RDW 14.2 11.0 - 15.0 % 10/11/2024 6:51 AM [facility] Platelets 537(H) 140 - 400 10*3/uL 10/11/2024 6:51 AM [facility] MPV 9.2 7.5 - 12.5 fL 10/11/2024 6:51 AM EDT [facility] Neutrophil % 74.4 % 10/11/2024 6:51 AM EDT [facility] Immature Grans % 0.8 0.0 - 0.9 % 10/11/2024 6:51 AM EDT [facility] Lymphocyte % 11.3 % 10/11/2024 6:51 AM [facility] Monocyte % 10.2 % 10/11/2024 6:51 AM EDT [facility] Eosinophil % 2.9 % 10/11/2024 6:51 AM EDT [facility] Basophil % 0.4 % 10/11/2024 6:51 AM EDT [facility] Neutrophil # 5.47 1.50 - 7.80 10*3/uL 10/11/2024 6:51 AM EDT [facility] Immature Grans # 0.06(H) <=0.03 10*3/uL 10/11/2024 6:51 AM EDT [facility] Lymphocyte # 0.80(L) 0.85 - 3.90 10*3/uL 10/11/2024 6:51 AM EDT [facility] Monocyte # 0.80 0.20 - 0.95 10*3/uL 10/11/2024 6:51 AM EDT [facility] Eosinophil # 0.20 0.02 - 0.50 10*3/uL 10/11/2024 6:51 AM EDT [facility] Basophil # <0.03 0.00 - 0.20 10*3/uL 10/11/2024 6:51 AM EDT [facility] nRBC % 0.0 /100 WBCs 10/11/2024 6:51 AM EDT [facility] nRBC # <0.01 <0.01 10*3/uL 10/11/2024 6:51 AM EDT [facility] Blood Structure of peripheral vein / Unknown Venipuncture / Unknown 10/11/2024 6:00 AM EDT 10/11/2024 6:10 AM EDT us Bre Frances DO LAB BLOOD ORDERABLES Final Result [facility] [address] [place] [address], [place] * CT Abdomen, Outside Result (10/10/2024) Anatomical Region Laterality Modality Other 10/10/2024 us Onbase Scan [facility] AMB EXTERNAL RESULT PROCEDURE S Final Result * (ABNORMAL) CBC (10/06/2024 10:08 AM EDT) Only the most recent of2 resultswithin the time period is included. WBC 7.7 3.8 - 10.8 10*3/uL 10/06/2024 11:33 AM EDT [facility] RBC 2.87(L) 4.20 - 5.80 10*6/uL 10/06/2024 11:33 AM EDT [facility] Hemoglobin 9.0(L) 13.2 - 17.1 g/dL 10/06/2024 11:33 AM EDT [facility] Hematocrit 27.1(L) 38.5 - 50.0 % 10/06/2024 11:33 AM EDT [facility] MCV 94.4 80.0 - 100.0 fL 10/06/2024 11:33 AM EDT [facility] MCH 31.4 27.0 - 33.0 pg 10/06/2024 11:33 AM EDT [facility] MCHC 33.2 32.0 - 36.0 g/dL 10/06/2024 11:33 AM EDT [facility] RDW 13.8 11.0 - 15.0 % 10/06/2024 11:33 AM EDT [facility] Platelets 305 140 - 400 10*3/uL 10/06/2024 11:33 AM EDT [facility] MPV 10.2 7.5 - 12.5 fL 10/06/2024 11:33 AM EDT [facility] Comment:A smear review has b een added. Clinician review and interpretation will be needed once the report is final. Blood Implantable venous catheter submitted as specimen / Unknown Venipuncture / Unknown 10/06/2024 10:08 AM EDT 10/06/2024 10:27 AM EDT us Annemarie Charles MD MPH LAB BLOOD ORDERABLES Final Re sult [facility] [address] [place] [address], [place] * (ABNORMAL) Manual Differential (10/05/2024 3:56 AM EDT) Only the most recent of3 resultswithin the time period is included. Neutrophil %, Manual 51 % 10/05/2024 5:32 AM T [facility] Band % 31(H) 0 - 7 % 10/05/2024 5:32 AM EDT [facility] Lymphocyte %, Manual 6 % 10/05/2024 5:32 AM EDT [facility] Monocyte %, Manual 6 % 10/05/2024 5:32 AM EDT [facility] Eosinophil %, Manual 4 % 10/05/2024 5:32 AM EDT [facility] Basophil %, Manual 1 % 10/05/2024 5:32 AM EDT [facility] Reactive Lymphocyte % 1 0 - 6 % 10/05/2024 5:32 AM T [facility] Total Neutrophil #, Manual 4.02 1.50 - 7.80 10*3/uL 10/05/2024 5:32 AM T [facility] Bands #,Manual 1.52 10*3/uL 10/05/2024 5:32 AM T [facility] Total Lymph #, Manual 0.34(L) 0.85 - 3.90 10*3/uL 10/05/2024 5:32 AM EDT [facility] Monocyte #, Manual 0.29 0.20 - 0.95 10*3/uL 10/05/2024 5:32 AM EDT [facility] Eosinophil #, Manual 0.20 0.02 - 0.50 10*3/uL 10/05/2024 5:32 AM EDT [facility] Basophil #, Manual 0.05 0.00 - 0.20 10*3/uL 10/05/2024 5:32 AM T [facility] Reactive Lymphocytes # 0.05 10*3/uL 10/05/2024 5:32 AM EDT [facility] Platelet Estimate Adequate Adequate 10/05/2024 5:32 AM EDT [facility] RBC Morphology Present(A) Normal, No clinically significant RBC morphology present (ICSH guidelines, 2015). 10/05/2024 5:32 AM EDT [facility] Dohle Bodies 2+(A) Not Present 10/05/2024 5:32 AM EDT [facility] Total Cells Counted 118 10/05/2024 5:32 AM EDT [facility] Blood Implantable venous catheter submitted as specimen / Unknown Existing Catheter / Unknown 10/05/2024 3:56 AM EDT 10/05/2024 4:15 AM EDT us Annemarie Charles MD MPH LAB BLOOD ORDERABLES Final Re sult Performing Organization Address City/[facility]/ZIP Co de Phone Number [facility] [address] [place] [address], [place] * (ABNORMAL) Prealbumin (10/04/2024 11:19 AM EDT) Prealbumin 10(L) 18 - 40 mg/dL 10/04/2024 12:17 PM EDT [facility] Blood Structure of peripheral vein / Unknown Venipuncture / Unknown 10/04/2024 11:19 AM EDT 10/04/2024 11:36 AM EDT Annemarie Charles MD MPH LAB BLOOD ORDERABLES Final Re sult Performing Organization Address City/[facility]/ZIP Co de Phone Number [facility] [address] [place] [address], [place] * X-Ray Chest 1 View (10/04/2024 9:52 AM EDT) Anatomical Region Laterality Modality Body Computed Radiogr aphy 10/05/2024 9:32 AM EDT Impressions 10/05/2024 9:33 AM EDT Heart size normal. Lungs hyperinflated but otherwise clear. NGT is in place with tip along the proximal greater curvature and side-port just at the GE junction. If this radiology report contains a blank impression section, it is an incomplete radiology report. ??Please contact the interpreting radiologist or applicable radiology division as soon as possible to obtain the completed interpretation. ? Workstation ID: [id number] Narrative 10/05/2024 9:33 AM EDT COMPARISON: ??None FINDINGS AND Resulting Agency Comment [id number] Procedure Note Daryl Ferrari MD - 10/05/2024 COMPARISON: None FINDINGS AND IMPRESSION: Heart size normal. Lungs hyperinflated but otherwise clear. NGT is inplace with tip along the proximal greater curvature and side-port just atthe GE junction. If this radiology report contains a blank impression section, it is anincomplete radiology report. Please contact the interpreting radiologistor applicable radiology division as soon as possible to obtain thecompleted interpretation. Workstation ID: [id number] Annemarie Charles MD MPH IMG XR PROCEDURES Final Resul t * (ABNORMAL) Hematocrit (10/01/2024 9:56 AM EDT) Only the most recent of2 resultswithin the time period is included. Hematocrit 31.3(L) 38.5 - 50.0 % 10/01/2024 10:44 AM EDT [facility] Blood Structure of peripheral vein / Unknown Venipuncture / Unknown 10/01/2024 9:56 AM EDT 10/01/2024 10:36 AM EDT us Annemarie Charles MD MPH LAB BLOOD ORDERABLES Final Re sult [facility] [address] [place] [address], [place] * Potassium (10/01/2024 4:09 AM EDT) K 3.7 3.5 - 5.3 mmol/L 10/01/2024 4:42 AM EDT [facility] Blood Structure of peripheral vein / Unknown Venipuncture / Unknown 10/01/2024 4:09 AM EDT 10/01/2024 4:18 AM EDT us Annemarie Charles MD MPH LAB BLOOD ORDERABLES Final Re sult [facility] [address] [place] [address], [place] * Tissue Exam (09/30/2024 4:03 PM EDT) Final Diagnosis Ileostomy, Colon and Mucous Fistula: -Skin and small bowel mucosa with congestion and erosion. [facility] MANUAL 10/02/2024 1:38 PM EDT [facility] at 1338 EDT Clinical History Pre-op diagnosis: Ileostomy in place (HCC) [Z93.2] [facility] MANUAL 10/02/2024 1:38 PM EDT [facility] Gross Description 1. Ileostomy Received fresh, labeled with the patient's name, date of , medical record number, and ileostomy, colon and mucous fistula , is an unoriented segment of small bowel (14.0 cm in length, 2.0 cm in diameter), which communicates with an overlying baker-pink skin (2.7 x 1.8 cm), 5.5 cm from 1 resection margin and 7.0 cm from the opposite resection margin. The serosa is baker-pink and smooth. The specimen is opened to reveal baker mucosa, with focal denuded folds, containing baker mucoid material. Service Officer sections are submitted as follows: 1A-1B-bowel communicating with the overlying skin, RSS 1C-resection margins (inked black and green,, longitudinally), RSS [facility] MANUAL 10/02/2024 1:38 PM EDT [facility] Gross Description User Grossing complete by Julia Townsend on 10/01/2024 12:33 PM [facility] 10/02/2024 1:38 PM EDT [facility] Embedded Images [facility] 10/02/2024 1:38 PM EDT [facility] Resulting Agency Case was signed out at [facility] CLIA [id number] [facility] 10/02/2024 1:38 PM EDT [facility] Report Header Surgical Pathology Report ? Case: [id number] ? Authorizing Provider: ??Annemarie Charles MD MPH ?Collected: ? 09/30/2024 1603 ? Ordering Location: ? [facility] ? Received: ?10/01/20241005 ? [facility] ? Operating Room ? Pathologist: ? Stacia Shemmeri ? Specimen: ?Ileostomy, ILEOSTOMY, COLON AND MUCOUS FISTULA ? 10/02/2024 1:38 PM EDT [facility] Tissue Intestinal stoma / Unknown 09/30/2024 4:03 PM EDT 10/01/2024 10:06 AM EDT Comment:Pre-op diagnosis: Ileostomy in place (HCC) [Z93.2] us Annemarie Charles MD MPH LAB PATHOLOGY/CYTOLOGY ORDERA BLES Final Result [facility] [address] [place] [address], [facility] [address] [place] [address], [place] * Colonoscopy (06/06/2024) 06/06/2024 us Onbase Scan [facility] Final Resu lt * CT Chest, Outside Result (10/09/2023) Anatomical Region Laterality Modality Other 10/09/2023 us Onbase Scan [facility] AMB EXTERNAL RESULT PROCEDURE S Final Result from Last 3 Months or Most Recently Relevant to Health Maintenance Insurance [facility] Advance Directives Documents on File Type Date Recorded Patient Service Officer Expl anation Health Care Proxy 10/19/2024 5:20 PM 10-19 * Full Code (Latest Code Status on File) Date Activated Date Inactivated Comments 10/11/2024 8:20 AM 10/22/2024 4:02 PM * Full Code Date Activated Date Inactivated Comments 09/30/2024 5:51 PM 10/08/2024 4:49 PM Healthcare Agents on File Name Relationship Healthcare Agent Relationship Communication America Patel Spouse Next of Kin Care Teams Mechanical Planner Relationship Specialty Start Date End Date Naomi Heaton [facility] [address] [place] [address] PCP - General 07/05/24
--- OUTSIDE RECORDS SUMMARY | 2024-12-04 20:06 | XMS_ITS | Clinical Summary ---
Author Organization [facility] Facility Address [address] [place] [address], [place] [address] Care Team Providers Care Product Manager Name Role Phone Florina Naomi MELENDEZ Primary Care Provider [phone] Social History Tobacco Use Types Packs/Day Years Used Date Smoking Tobacco: Never Assessed Sex and Gender Information Value Date Recorded Sex Assigned at Not on file Legal Sex Male 9:49 AM EDT Gender Identity Not on file Sexual Orientation Not on file Plan of Treatment Health Maintenance Due Date Last Done Comments Colorectal Cancer Screening: Annual FOBT 2009 Colorectal Cancer Screening: Colonoscopy 2009 Colorectal Cancer Screening: Sigmoidoscopy 2009 Pneumococcal Vaccine: 50+ Ye ars (2 of 2 - PCV) 02/07/2016 02/06/2015 Influenza Vaccine (Season Ended) 2025 Pneumococcal Vaccine: Peds ( 0 to 5 Years) and At-Risk Patients (6 to 49 Years) Discontinued 02/06/2015 Hepatitis B Vaccine Aged Out No longe r eligible based on patient's age to complete this topic Insurance [facility] Medicaid [place] Care Teams Product Manager Relationship Specialty Start Date End Date Naomi Heaton NP [address] [place] [id number] PCP - General Nurse Practitioner 01/15/24
--- OUTSIDE RECORDS SUMMARY | 2024-12-04 20:06 | XMS_ITS | Encounter Summary ---
Author Organization [facility] Address [address] [place] [address] Care Team Providers Care Oceanographer Physical Name Role Phone Naomi Heaton Primary Care Provider [phone] Encounter Details Date Type Department Care Team (Late st Contact Info) Description 11/25/2024 TellMihart Message [facility] Colorectal Surgery [address] [place] [phone] Dip Tanker: Kassidy Rutherford PA [address] [place] [address] [phone] Most reecent pictures of the wound Social History Tobacco Use Types Packs/Day Years Used Date Smoking Tobacco: Former Cigarettes 1 24 S tarted: 1999 Smokeless Tobacco: Never Alcohol Use Standard Drinks/Week Comments Not Currently 0 (1 standard drink = 0.6 oz pur e alcohol) [facility] Utilities Answer Date Recorded In the past 12 months has e [employer], gas, oil, or water [employer] threatened to shut off services in your [...] not to disclose 2024 5:54 PM EST documented as of this encounter Plan of Treatment Upcoming Encounters Date Type Department Care Team (Late st Contact Info) Description 12/11/2024 8:15 AM EDT Follow-Up [facility] Colorectal Surgery [address] [place] [phone] Dip Tanker: Annemarie Lopez MD MPH [address] [place] [phone] documented as of this encounter Visit Diagnoses Not on filedocumented in this encounter Care Teams Oceanographer Physical Relationship Specialty Start Date End Date Naomi Heaton [address] [facility] [address] [place] [address] PCP - General 07/05/24 documented as of this encounter
--- OUTSIDE RECORDS SUMMARY | 2024-12-04 20:06 | XMS_ITS | Encounter Summary ---
Author Organization [facility] Address [address] [place] [address] Care Team Providers Care Rotary Operator Name Role Phone Naomi Heaton Primary Care Provider [phone] Encounter Details Date Type Department Care Team (Late st Contact Info) Description 10/10/2024 Orders Only [facility] Building [address], 5th floor [facility] [place] [address] Lisandro Leos MD [address] [place] [phone] Social History Tobacco Use Types Packs/Day Years Used Date Smoking Tobacco: Former Cigarettes 1 24 S tarted: 2000 Smokeless Tobacco: Never Alcohol Use Standard Drinks/Week Comments Not Currently 0 (1 standard drink = 0.6 oz pur e alcohol) [facility] Utilities Answer Date Recorded In the past 12 months has e electric, gas, oil, or water company threatened to shut off services in your [...] Info) Description 12/11/2024 8:15 AM EDT Follow-Up [facility] Colorectal Surgery [address] [place] [phone] Riveter Helper: Annemarie Lopez MD MPH [address] [place] [address] [phone] documented as of this encounter Visit Diagnoses Not on filedocumented in this encounter Care Teams Rotary Operator Relationship Specialty Start Date End Date Naomi Heaton [address] [place] [address] PCP - General 07/05/24 documented as of this encounter
--- OUTSIDE RECORDS SUMMARY | 2024-12-04 20:06 | XMS_ITS | Encounter Summary ---
Author Organization [facility] Address [address] [place] [address] Care Team Providers Care Racing Car Driver Name Role Phone Unavailable Primary Care Provider Unavailabl e Encounter Details Date Type Department Care Team (Late st Contact Info) Description 11/26/2024 Lab Requisition [facility] - Main Lab [address] [facility] [place] [address] Annemarie Charles MD [address] [facility] [place] [address] Fistula of intestine; Postprocedural hepatorenal [...] Procedure Name Priority Date/Time Associated Diagnosis Comments SST - GOLD Routine 11/26/2024 5:30 PM EDT Fistula of intestine Postprocedural hepatorenal syndrome CBC WITH AUTO DIFFERENTIAL Routine 11/26/2024 5:30 PM EDT Fistula of intestine Postprocedural hepatorenal syndrome CBC AND DIFFERENTIAL Routine 11/26/2024 5:30 PM EDT Fistula of intestine Postprocedural hepatorenal syndrome TRIGLYCERIDES Routine 11/26/2024 5:30 PM EDT Fistula of intestine Postprocedural hepatorenal syndrome PHOSPHORUS Routine 11/26/2024 5:30 PM EDT Fistula of intestine Postprocedural hepatorenal syndrome MAGNESIUM Routine 11/26/2024 5:30 PM EDT Fistula of intestine Postprocedural hepatorenal syndrome COMPREHENSIVE METABOLIC PANEL Routine 11/26/2024 5:30 PM EDT Fistula of intestine Postprocedural hepatorenal syndrome documented in this encounter Results * SST tube (11/26/2024 5:30 PM EDT) [facility] Extra Tube Hold for add-ons. 11/26/2024 9:01 PM EDT [facility] Comment:Auto resulted. Blood Venous blood specimen / Unknown 11/26/2024 5:30 PM EDT 11/26/2024 7:48 PM EDT us Annemarie Charles MD LAB BLOOD ORDERABLES Final Resul t [facility] [address] [place] [address], [place] [phone] * (ABNORMAL) CBC auto differential (11/26/2024 5:30 PM EDT) [facility] WBC 4.4(L) 4.8 - 10.8 K/mcL LAB HEMETOLOGY METHOD 11/26/2024 8:37 PM EDT [facility] RBC 3.20(L) 4.50 - 5.50 M/mcL LAB HEMETOLOGY METHOD 11/26/2024 8:37 PM EDT [facility] Hemoglobin 9.9(L) 13.5 - 17.5 g/dL LAB HEMETOLOGY METHOD 11/26/2024 8:37 PM EDT [facility] Hematocrit 30.7(L) 42.0 - 54.0 % LAB HEMETOLOGY METHOD 11/26/2024 8:37 PM EDT [facility] MCV 97.2 79.0 - 98.0 FL LAB HEMETOLOGY METHOD 11/26/2024 8:37 PM EDT [facility] MCH 31.3 27.0 - 32.0 pcg LAB HEMETOLOGY METHOD 11/26/2024 8:37 PM EDT [facility] MCHC 32.2 32.0 - 37.0 g/dL LAB HEMETOLOGY METHOD 11/26/2024 8:37 PM EDT [facility] RDW 13.4 11.0 - 15.0 % LAB HEMETOLOGY METHOD 11/26/2024 8:37 PM EDT [facility] Platelets 269 130 - 400 K/mcL LAB HEMETOLOGY METHOD 11/26/2024 8:37 PM EDT [facility] MPV 11.0 7.0 - 11.0 FL LAB HEMETOLOGY METHOD 11/26/2024 8:37 PM EDT [facility] NRBC 0.0 <1.0 % LAB HEMETOLOGY METHOD 11/26/2024 8:37 PM EDT [facility] NRBC Absolute 0.00 <0.10 K/mcL LAB HEMETOLOGY METHOD 11/26/2024 8:37 PM EDT [facility] Neutrophils Relative 61.9 % LAB HEMETOLOGY METHOD 11/26/2024 8:37 PM EDT [facility] Lymphocytes Relative 22.3 % LAB HEMETOLOGY METHOD 11/26/2024 8:37 PM EDT [facility] Monocytes Relative 9.7 % LAB HEMETOLOGY METHOD 11/26/2024 8:37 PM EDT [facility] Eosinophils Relative 5.2 % LAB HEMETOLOGY METHOD 11/26/2024 8:37 PM EDT [facility] Basophils Relative 0.9 % LAB HEMETOLOGY METHOD 11/26/2024 8:37 PM EDT [facility] Immature Granulocytes Relative 0.0 % LAB HEMETOLOGY METHOD 11/26/2024 8:37 PM EDT [facility] Neutrophils Absolute 2.74 1.50 - 7.00 K/mcL LAB HEMETOLOGY METHOD 11/26/2024 8:37 PM EDT [facility] Lymphocytes Absolute 0.99(L) 1.00 - 5.00 K/mcL LAB HEMETOLOGY METHOD 11/26/2024 8:37 PM EDT [facility] Monocytes Absolute 0.43 0.20 - 1.00 K/mcL LAB HEMETOLOGY METHOD 11/26/2024 8:37 PM EDT [facility] Eosinophils Absolute 0.23 0.00 - 0.50 K/[facility] LAB HEMETOLOGY METHOD 11/26/2024 8:37 PM EDT [facility] Basophils Absolute 0.04 0.00 - 0.20 K/mcL LAB HEMETOLOGY METHOD 11/26/2024 8:37 PM EDT [facility] Immature Granulocytes Absolute 0.00 0.00 - 0.03 K/mcL LAB HEMETOLOGY METHOD 11/26/2024 8:37 PM EDT [facility] Blood Venous blood specimen / Unknown 11/26/2024 5:30 PM EDT 11/26/2024 7:48 PM EDT us Annemarie Charles MD LAB BLOOD ORDERABLES Final Resul t [facility] [address] [place] [address], * Triglycerides (11/26/2024 5:30 PM EDT) Triglycerides 57 0 - 150 mg/dL LAB CHEMISTRY METHOD 11/26/2024 8:23 PM EDT [facility] Blood Venous blood specimen / Unknown 11/26/2024 5:30 PM EDT 11/26/2024 7:48 PM EDT us Annemarie Charles MD LAB BLOOD ORDERABLES Final Resul t Performing Organization Address City/[facility]/ZIP Co de Phone Number [facility] [address] [place] [address], [place] [phone] * Phosphorus (11/26/2024 5:30 PM EDT) Pathologist [facility] Phosphorus 4.4 2.5 - 4.5 mg/dL LAB CHEMISTRY METHOD 11/26/2024 8:17 PM EDT [facility] Blood Venous blood specimen / Unknown 11/26/2024 5:30 PM EDT 11/26/2024 7:48 PM EDT Annemarie Charles MD LAB BLOOD ORDERABLES Final Resul t Performing Organization Address [facility] de Phone Number [facility] [address] [place] [address], [place] [phone] * (ABNORMAL) Magnesium (11/26/2024 5:30 PM EDT) [facility] Magnesium 1.7(L) 1.9 - 2.6 mg/dL LAB CHEMISTRY METHOD 11/26/2024 8:17 PM EDT [facility] Blood Venous blood specimen / Unknown 11/26/2024 5:30 PM EDT 11/26/2024 7:48 PM EDT Annemarie Charles MD LAB BLOOD ORDERABLES Final Resul t Performing Organization Address [facility]/ZIP Co de Phone Number [facility] [address] [place] [address], [place] [phone] * (ABNORMAL) Comprehensive metabolic panel (11/26/2024 5:30 PM EDT) Pathologist [facility] Sodium 140 133 - 145 mmol/L LAB CHEMISTRY METHOD 11/26/2024 8:23 PM EDT [facility] Potassium 3.6 3.5 - 5.5 mmol/L LAB CHEMISTRY METHOD 11/26/2024 8:23 PM [facility] Chloride 111(H) 96 - 110 mmol/L LAB CHEMISTRY METHOD 11/26/2024 8:23 PM [facility] CO2 21 21 - 32 mmol/L LAB CHEMISTRY METHOD 11/26/2024 8:23 PM [facility] Anion Gap 8 3 - 11 LAB CHEMISTRY METHOD 11/26/2024 8:23 PM [facility] Glucose 80 70 - 100 mg/dL LAB CHEMISTRY METHOD 11/26/2024 8:23 PM [facility] BUN 13 5 - 25 mg/dL LAB CHEMISTRY METHOD 11/26/2024 8:23 PM [facility] Creatinine 0.86 0.70 - 1.30 mg/dL LAB CHEMISTRY METHOD 11/26/2024 8:23 PM [facility] eGFR 97 >=60 mL/min/1. 73m2 LAB CHEMISTRY METHOD 11/26/2024 8:23 PM [facility] Comment:Calculation based on the Chronic Kidney Disease Epidemiology Collaboration (CKD-EPI) equation refit without adjustment for race. BUN/Creatinine Ratio 15.1 LAB CHEMISTRY METHOD 11/26/2024 8:23 PM [facility] Calcium 8.3(L) 8.5 - 10.5 mg/dL LAB CHEMISTRY METHOD 11/26/2024 8:23 PM [facility] AST (SGOT) 42 10 - 42 unit/L LAB CHEMISTRY METHOD 11/26/2024 8:23 PM [facility] ALT (SGPT) 66(H) 10 - 60 unit/L LAB CHEMISTRY METHOD 11/26/2024 8:23 PM [facility] Alkaline Phosphatase 109 42 - 121 unit/L LAB CHEMISTRY METHOD 11/26/2024 8:23 PM [facility] Total Protein 6.4 6.0 - 8.0 g/dL LAB CHEMISTRY METHOD 11/26/2024 8:23 PM EDT [facility] Albumin 3.2 3.2 - 5.0 g/dL LAB CHEMISTRY METHOD 11/26/2024 8:23 PM EDT [facility] Total Bilirubin 0.4 0.0 - 1.4 mg/dL LAB CHEMISTRY METHOD 11/26/2024 8:23 PM EDT [facility] Blood Venous blood specimen / Unknown 11/26/2024 5:30 PM EDT 11/26/2024 7:48 PM EDT us Annemarie Charles MD LAB BLOOD ORDERABLES Final Resul t [facility] [address] [place] [address], [place] [phone] documented in this encounter Visit Diagnoses Diagnosis Fistula of intestine Fistula of intestine, excluding rectum and anus Postprocedural hepatorenal syndrome documented in this encounter
--- OUTSIDE RECORDS SUMMARY | 2024-12-04 20:06 | XMS_ITS | Encounter Summary ---
Author Organization [facility] Address [address] [place] [address] Care Team Providers Care Director Of Strategy & Mobile Name Role Phone Physician, Pcp Unknown Primary Care Provider Iram vailable Encounter Details Date Type Department Care Team (Late st Contact Info) Description 09/13/2024 Lab Requisition [facility] - Main Lab [address] [facility] [place] [address] Mario Francis MD [address] [place] [phone] Malignant neoplasm of prostate (CMS/HCC V24, CMS/HCC V28) Social History Tobacco Use Types Packs/Day Years [...] Procedure Name Priority Date/Time Associated Diagnosis Comments AP OUTSIDE CONSULT Routine 09/11/2024 12 :00 AM EST Malignant neoplasm of prostate (CMS/HCC) documented in this encounter Results * Anatomic pathology outside consult (09/11/2024 12:00 AM EST) Final Diagnosis A. Urine, Voided, ([id number]): Negative for high grade urothelial carcinoma. Degenerated urothelial cells present with cellular changes suggestive of Polyomavirus effect. 09/15/2024 4:11 PM EST [facility] Clinical Information Malignant neoplasm of prostate C61 Urine cytology with reflex UroVysion (AUC/SHGUC) 09/15/2024 4:11 PM [facility] Gross Description A. Urine, Voided, ([id number]): Received one ThinPrep slide for cytology. 09/15/2024 4:11 PM [facility] Disclaimer Unless otherwise specified, all tissue is 10% NB formalin fixed and paraffin embedded. Technical pathology services provided by [facility] [address] [facility] [address] [place] [address] (CLIA #[id number]/S zunilda Hampton MD, Waistline Joiner Lockstitch) 09/15/2024 4:11 PM [facility] Tissue Urine specimen from urethra / Unknown 09/11/2024 09/13/2024 9:56 AM EST us Mario Francis MD LAB PATHOLOGY ORDERABLES Final Result [facility] [address] [place] [address], documented in this encounter Visit Diagnoses Diagnosis Malignant neoplasm of prostate (CMS/HCC V24, CMS/HCC V28) Malignant neoplasm of prostate documented in this encounter Care Teams Director Of Strategy & Mobile Relationship Specialty Start Date End Date Physician, Pcp Unknown PCP - General 09/13/24 09/13/24 documented as of this encounter
--- OUTSIDE RECORDS SUMMARY | 2024-12-04 20:06 | XMS_ITS | Encounter Summary ---
Author Organization [facility] Address [address] [place] [address] Care Team Providers Care Patient Relations Director Name Role Phone Physician, Pcp Unknown Primary Care Provider Iram vailable Encounter Details Date Type Department Care Team (Late st Contact Info) Description 08/15/2024 Lab Requisition [facility] - Main Lab [address] [facility] [place] [address] Radha Denis PA [address] [place] [address] Gross hematuria Social History Tobacco Use Types Packs/Day Years [...] Associated Diagnosis Comments AP OUTSIDE CONSULT Routine 08/12/2024 12 :00 AM EST Gross hematuria documented in this encounter Results * Anatomic pathology outside consult (08/12/2024 12:00 AM EST) Final Diagnosis A. Urine, Voided, ([id number]): FEW ATYPICAL UROTHELIAL CELLS. Degenerated urothelial cells present with cellular changes suggestive of Polyomavirus effect. Results of UroVysion fluorescence in situ hybridization (FISH) testing: CEP3: Normal CEP7: Normal CEP17: Normal LSI 9p21: Normal Interpretation: Normal profile Controls stained appropriately. Note: The results are intended as a screening device and should be interpreted in association with other clinical and pathological findings. 08/29/2024 11:49 AM EST [facility] Clinical Information Gross hematuria R31.0 Urine Cytology/FISH (now) 08/29/2024 11:49 AM EST [facility] Gross Description A. Urine, Voided, ([id number]): Received one ThinPrep slide for cytology screen and one ThinPrep slide for UroVysion FISH 08/29/2024 11:49 AM [facility] Disclaimer Unless otherwise specified, all tissue is 10% NB formalin fixed and paraffin embedded. Technical pathology services provided by [facility] at [address] [facility] [address], [place] [address] (CLIA #[id number]/Anahi Hampton MD, Metrology Manager) 08/29/2024 11:49 AM [facility] Tissue Urine specimen from urethra / Unknown 08/12/2024 08/15/2024 8:06 AM EST us Radha ARAUZ LAB PATHOLOGY ORDERABLES Final Result [facility]) [facility] [address] [place] [address], documented in this encounter Visit Diagnoses Diagnosis Gross hematuria documented in this encounter Care Teams Patient Relations Director Relationship Specialty Start Date End Date Physician, Pcp Unknown PCP - General 09/13/24 09/13/24 documented as of this encounter
--- OUTSIDE RECORDS SUMMARY | 2024-12-04 20:06 | XMS_ITS | Clinical Summary ---
Author Organization 299 [facility] Address [address] [place] [address] Phone Care Team Providers Care Devil Dog Name Role Phone Unavailable Primary Care Provider Unavailabl e Encounters Date Type Department Care Team Description 11/26/[address] [facility] [address] [place] [phone] Annemarie Charles MD Fistula of intestine; Postprocedural hepatorenal syndrome 11/12/[address] [facility] Lab [address] [place] [phone] Annemarie Charles MD Fistula of intestine; Postprocedural hepatorenal syndrome 09/13/[address] [facility] Lab [address] [place] [phone] Mario Francis MD Malignant neoplasm of prostate (CMS/HCC V24, CMS/HCC V28) from Last 3 Months Social History Tobacco Use Types Packs/Day Years Used Date Smoking Tobacco: Never Assessed Sex and Gender Information Value Date Recorded Sex Assigned at Not on file Legal Sex Male 7:59 AM EST Gender Identity Not on file Sexual Orientation Not on file Plan of Treatment Health Maintenance Due Date Last Done Comments COVID-19 Vaccine (#1) 1965 DTaP,Tdap,and Td Vaccines (1 - Tdap) 1979 Pneumococcal Vaccine: 50+ Ye ars (1 of 2 - PCV) 1979 Pneumococcal Vaccine: Pediat rics (0 to 5 Years) and At-Risk Patients (6 to 64 Years) (1 of 2 - PCV) 1979 Zoster Vaccines (1 of 2) 1979 Cholesterol Screening (Lipid Panel) 08/16/2024 Colorectal Cancer Screening: Colonoscopy 08/16/2024 Depression Screening 08/16/2024 HIV Screening 08/16/2024 Hepatitis C Screening 08/16/2024 Social Influencers of Health Screening 08/16/2024 Influenza Vaccine (Season Ended) 2025 RSV Immunization Adult Patie nts (1 - 1-dose 75+ series) 2035 HIB Vaccines Aged Out No longer eligi ble based on patient's age to complete this topic HPV Vaccines Aged Out No longer eligi ble based on patient's age to complete this topic Hepatitis A Vaccines Aged Out No long er eligible based on patient's age to complete this topic Hepatitis B Vaccines Aged Out No long er eligible based on patient's age to complete this topic IPV Vaccines Aged Out No longer eligi ble based on patient's age to complete this topic MMR Vaccines Aged Out No longer eligi ble based on patient's age to complete this topic Meningococcal ACWY Vaccine Aged Out N o longer eligible based on patient's age to complete this topic Meningococcal B Vaccine Aged Out No l onger eligible based on patient's age to complete this topic RSV Immunization Patients Un michelle 20 months Aged Out No longer eligible b ased on patient's age to complete this topic Varicella Vaccines Aged Out No longer eligible based on patient's age to complete this topic Procedures Procedure Name Priority Date/Time Associated Diagnosis [...] hepatorenal syndrome CBC WITH AUTO DIFFERENTIAL Routine 11/12/2024 5:00 [...] EDT Fistula of intestine Postprocedural hepatorenal syndrome AP OUTSIDE CONSULT Routine 09/11/2024 12 :00 AM EST Malignant neoplasm of prostate (CMS/HCC) from Last 3 Months Results * SST tube (11/26/2024 5:30 PM EDT) Extra Tube Hold for add-ons. 11/26/2024 9:01 PM EDT [facility] Comment:Auto resulted. Blood Venous blood specimen / Unknown 11/26/2024 5:30 PM EDT 11/26/2024 7:48 PM EDT us Annemarie Charles MD LAB BLOOD ORDERABLES Final Resul t [facility] [address] [place] [address], [place] [phone] * (ABNORMAL) CBC auto differential (11/26/2024 5:30 PM EDT) Only the most recent of2 resultswithin the time period is included. WBC 4.4(L) 4.8 - 10.8 K/mcL LAB HEMETOLOGY METHOD 11/26/2024 8:37 PM EDT [facility] RBC 3.20(L) 4.50 - 5.50 M/mcL LAB HEMETOLOGY METHOD 11/26/2024 8:37 PM EDT [facility] Hemoglobin 9.9(L) 13.5 - 17.5 g/dL LAB HEMETOLOGY METHOD 11/26/2024 8:37 PM EDT [facility] Hematocrit 30.7(L) 42.0 - 54.0 % LAB [facility]OLOGY [facility] MCV 97.2 79.0 - 98.0 FL LAB HEMETOLOGY METHOD 11/26/2024 8:37 PM EDT [facility] MCH 31.3 27.0 - 32.0 pcg LAB HEMETOLOGY METHOD 11/26/2024 8:37 PM EDT [facility] MCHC 32.2 32.0 - 37.0 g/dL LAB HEMETOLOGY METHOD 11/26/2024 8:37 PM EDT [facility] RDW 13.4 11.0 - 15.0 % LAB HEMETOLOGY METHOD 11/26/2024 8:37 PM EDT [facility] Platelets 269 130 - 400 K/mcL LAB HEMETOLOGY METHOD 11/26/2024 8:37 PM EDT [facility] MPV 11.0 7.0 - 11.0 FL LAB HEMETOLOGY METHOD 11/26/2024 8:37 PM EDT [facility] NRBC 0.0 <1.0 % LAB HEMETOLOGY METHOD 11/26/2024 8:37 PM EDT [facility] NRBC Absolute 0.00 <0.10 K/mcL LAB [facility]OLOGY [facility] Neutrophils Relative 61.9 % LAB HEMETOLOGY METHOD 11/26/2024 8:37 PM [facility] Lymphocytes Relative 22.3 % LAB HEMETOLOGY METHOD 11/26/2024 8:37 PM [facility] Monocytes Relative 9.7 % LAB HEMETOLOGY METHOD 11/26/2024 8:37 PM [facility] Eosinophils Relative 5.2 % LAB HEMETOLOGY METHOD 11/26/2024 8:37 PM [facility] Basophils Relative 0.9 % LAB HEMETOLOGY METHOD 11/26/2024 8:37 PM [facility] Immature Granulocytes Relative 0.0 % LAB HEMETOLOGY METHOD 11/26/2024 8:37 PM [facility] Neutrophils Absolute 2.74 1.50 - 7.00 K/mcL LAB HEMETOLOGY METHOD 11/26/2024 8:37 PM [facility] Lymphocytes Absolute 0.99(L) 1.00 - 5.00 K/mcL LAB HEMETOLOGY METHOD 11/26/2024 8:37 PM [facility] Monocytes Absolute 0.43 0.20 - 1.00 K/mcL LAB HEMETOLOGY METHOD 11/26/2024 8:37 PM [facility] Eosinophils Absolute 0.23 0.00 - 0.50 K/mcL LAB HEMETOLOGY METHOD 11/26/2024 8:37 PM [facility] Basophils Absolute 0.04 0.00 - 0.20 K/mcL LAB HEMETOLOGY METHOD 11/26/2024 8:37 PM [facility] Immature Granulocytes Absolute 0.00 0.00 - 0.03 K/mcL LAB HEMETOLOGY METHOD 11/26/2024 8:37 PM EDT [facility] Blood Venous blood specimen / Unknown 11/26/2024 5:30 PM EDT 11/26/2024 7:48 PM EDT Annemarie Charles MD LAB BLOOD ORDERABLES Final Resul t Performing Organization Address City/[facility] de Phone Number [facility] [address] [place] [address], [place] [phone] * Triglycerides (11/26/2024 5:30 PM EDT) Only the most recent of2 resultswithin the time period is included. Triglycerides 57 0 - 150 mg/dL LAB CHEMISTRY METHOD 11/26/2024 8:23 PM EDT [facility] Blood Venous blood specimen / Unknown 11/26/2024 5:30 PM EDT 11/26/2024 7:48 PM EDT us Annemarie Charles MD LAB BLOOD ORDERABLES Final Resul t Performing Organization Address [facility] de Phone Number [facility] [address] [place] [address], * Phosphorus (11/26/2024 5:30 PM EDT) Only the most recent of2 resultswithin the time period is included. Phosphorus 4.4 2.5 - 4.5 mg/dL LAB CHEMISTRY METHOD 11/26/2024 8:17 PM EDT [facility] Blood Venous blood specimen / Unknown 11/26/2024 5:30 PM EDT 11/26/2024 7:48 PM EDT us Annemarie Charles MD LAB BLOOD ORDERABLES Final Resul t Performing Organization Address [facility] de Phone Number [facility] [address] [place] [address], [place] [phone] * (ABNORMAL) Magnesium (11/26/2024 5:30 PM EDT) Only the most recent of2 resultswithin the time period is included. Magnesium 1.7(L) 1.9 - 2.6 mg/dL LAB CHEMISTRY METHOD 11/26/2024 8:17 PM EDT [facility] Blood Venous blood specimen / Unknown 11/26/2024 5:30 PM EDT 11/26/2024 7:48 PM EDT Annemarie Charles MD LAB BLOOD ORDERABLES Final Resul t [facility] [address] [place] [address], [place] [phone] * (ABNORMAL) Comprehensive metabolic panel (11/26/2024 5:30 PM EDT) Only the most recent of2 resultswithin the time period is included. Sodium 140 133 - 145 mmol/L LAB CHEMISTRY METHOD 11/26/2024 8:23 PM EDT [facility] Potassium 3.6 3.5 - 5.5 mmol/L LAB CHEMISTRY METHOD 11/26/2024 8:23 PM [facility] Chloride 111(H) 96 - 110 mmol/L LAB CHEMISTRY METHOD 11/26/2024 8:23 PM T [facility] CO2 21 21 - 32 mmol/L LAB CHEMISTRY METHOD 11/26/2024 8:23 PM EDT [facility] Anion Gap 8 3 - 11 LAB CHEMISTRY METHOD 11/26/2024 8:23 PM T [facility] Glucose 80 70 - 100 mg/dL LAB CHEMISTRY METHOD 11/26/2024 8:23 PM EDT [facility] BUN 13 5 - 25 mg/dL LAB CHEMISTRY METHOD 11/26/2024 8:23 PM [facility] Creatinine 0.86 0.70 - 1.30 mg/dL LAB CHEMISTRY METHOD 11/26/2024 8:23 PM [facility] eGFR 97 >=60 mL/min/1. 73m2 LAB CHEMISTRY METHOD 11/26/2024 8:23 PM [facility] Comment:Calculation based on the Chronic Kidney Disease Epidemiology Collaboration (CKD-EPI) equation refit without adjustment for race. BUN/Creatinine Ratio 15.1 LAB CHEMISTRY METHOD 11/26/2024 8:23 PM [facility] Calcium 8.3(L) 8.5 - 10.5 mg/dL LAB CHEMISTRY METHOD 11/26/2024 8:23 PM [facility] AST (SGOT) 42 10 - 42 unit/L LAB CHEMISTRY METHOD 11/26/2024 8:23 PM [facility] ALT (SGPT) 66(H) 10 - 60 unit/L LAB CHEMISTRY METHOD 11/26/2024 8:23 PM [facility] Alkaline Phosphatase 109 42 - 121 unit/L LAB CHEMISTRY METHOD 11/26/2024 8:23 PM [facility] Total Protein 6.4 6.0 - 8.0 g/dL LAB CHEMISTRY METHOD 11/26/2024 8:23 PM [facility] Albumin 3.2 3.2 - 5.0 g/dL LAB CHEMISTRY METHOD 11/26/2024 8:23 PM [facility] Total Bilirubin 0.4 0.0 - 1.4 mg/dL LAB CHEMISTRY METHOD 11/26/2024 8:23 PM [facility] Blood Venous blood specimen / Unknown 11/26/2024 5:30 PM EDT 11/26/2024 7:48 PM EDT us Annemarie Charles MD LAB BLOOD ORDERABLES Final Resul t [facility] [address] [place] [address], * Anatomic pathology outside consult (09/11/2024 12:00 AM EST) Final Diagnosis A. Urine, Voided, ([id number]): Negative for high grade urothelial carcinoma. Degenerated urothelial cells present with cellular changes suggestive of Polyomavirus effect. 09/15/2024 4:11 PM EST [facility] Clinical Information Malignant neoplasm of prostate C61 Urine cytology with reflex UroVysion (AUC/SHGUC) 09/15/2024 4:11 PM EST [facility] Gross Description A. Urine, Voided, ([id number]): Received one ThinPrep slide for cytology. 09/15/2024 4:11 PM EST [facility] Disclaimer Unless otherwise specified, all tissue is 10% NB formalin fixed and paraffin embedded. Technical pathology services provided by [facility] at [address], [place] [address] (CLIA #[id number] zunilda Hampton MD, Alligator Shear Operator) 09/15/2024 4:11 PM EST [facility] Tissue Urine specimen from urethra / Unknown 09/11/2024 09/13/2024 9:56 AM EST us Mario Francis MD LAB PATHOLOGY ORDERABLES Final Result [facility] [address] [place] [address], from Last 3 Months Insurance [facility]
--- OUTSIDE RECORDS SUMMARY | 2024-12-04 20:07 | XMS_ITS | Encounter Summary ---
Author Organization [facility] Address [address] [place] [address] Care Team Providers Care Test Automation Architect Name Role Phone Naomi Heaton Primary Care Provider [phone] Encounter Details Date Type Department Care Team (Late st Contact Info) Description 11/01/2024 Orders Only [facility] Interventional Radiology [address] [place] [address] [phone] Catalino Mccauley MD [address] [facility] Diagnostic Radiology [place], [place] [id number] Social History Tobacco Use Types Packs/Day Years Used Date Smoking Tobacco: Former Cigarettes 1 24 S tarted: 1999 Smokeless Tobacco: Never Alcohol Use Standard Drinks/Week Comments Not Currently 0 (1 standard drink = 0.6 oz pur e alcohol) [facility] Utilities Answer Date Recorded In the past [...] Info) Description 12/11/2024 8:15 AM EDT Follow-Up [facility] Colorectal Surgery [address] [place] [phone] Analytical Scientist: Annemarie Lopez MD MPH [address] [place] [address] documented as of this encounter Visit Diagnoses Not on filedocumented in this encounter Care Teams Test Automation Architect Relationship Specialty Start Date End Date Naomi Heaton [address] [place] [address] PCP - General 07/05/24 documented as of this encounter
--- OUTSIDE RECORDS SUMMARY | 2024-12-04 20:07 | XMS_ITS | Encounter Summary ---
Author Organization [facility] Address [address] [place] [address] Care Team Providers Care Helicopter Crew Chief Name Role Phone Naomi Heaton Primary Care Provider [phone] Encounter Details Date Type Department Care Team (Late st Contact Info) Description 11/14/2024 Results Follow-Up [facility] Colorectal Surgery [address] [place] [address] Iv Therapy Nurse: Kassidy Rutherford PA [address] [place] [phone] Social History Tobacco Use Types Packs/Day Years Used Date Smoking Tobacco: Former Cigarettes 1 24 S tarted: 1999 Smokeless Tobacco: Never Alcohol Use Standard Drinks/Week Comments Not Currently 0 (1 standard drink = 0.6 oz pur e alcohol) [facility] Utilities Answer Date Recorded In the [...] Info) Description 12/11/2024 8:15 AM EDT Follow-Up [facility] Colorectal Surgery [address] [place] [address] Iv Therapy Nurse: Annemarie Lopez MD MPH [address] [place] [phone] documented as of this encounter Visit Diagnoses Not on filedocumented in this encounter Care Teams Helicopter Crew Chief Relationship Specialty Start Date End Date Naomi Heaton [address] [place] [address] PCP - General 07/05/24 documented as of this encounter
--- NOTE | 2024-12-04 21:09 | ED_ITS ---
HPI - General Adult General Chief complaint: General Medical Stated complaint: pic line clogged Time Seen by Provider: 12/04/24 20:36 Source: patient Mode of arrival: ambulatory Limitations: no limitations History of Present Illness ED Provider: HPI narrative: Patient is status post appendectomy 2 years ago followed by intraperitoneal fluid collection status post colostomy with reversal on 09/30/2024 on TPN since then comes here as he could not use no PICC line today was working fine just last night patient has had similar problem a month ago when it was flushed Related Data Allergies Allergy/AdvReac Type Severity Reaction Status Date / Time No Known Allergies Allergy Verified 12/04/24 19:08 Review of Systems 2 Review of Systems: Yes all other systems are reviewed and are negative PMFSH Social History Social History Smoked in Last 30 Days: No Use of substances other than those prescribed or required for medical reasons: No Advance Directives: No Advance Directives Information Provided: Yes Physical Exam ED Vital Signs: Vital Signs - 24 hr 12/04/24 19:03 12/04/24 20:00 12/04/24 22:05 Temperature 98.2 F 98.1 F 98.3 F Pulse Rate 84 84 60 Respiratory Rate 18 16 16 Blood Pressure 113/64 107/61 110/57 L Pulse Oximetry 96 97 100 Oxygen Delivery Method Room Air Room Air Room Air 12/05/24 00:24 Temperature 98.3 F Pulse Rate 60 Respiratory Rate 16 Blood Pressure 110/57 L Pulse Oximetry 100 Oxygen Delivery Method Room Air BMI result Body Mass Index 19.4 Appearance: Alert. Oriented X3. No acute distress. Eyes: PERRLA, No Nystagmus ENT: Pharynx normal. Oral Mucosa moist Neck: Normal inspection. Neck supple. CVS: Normal heart rate and rhythm. Pulses normal. Respiratory: No respiratory distress. Equal air entry bilateral, no wheezing/rales/rhonchi Abdomen: Soft and nontender. Bowel sounds are present, no mass palpable, no CVA tenderness Skin: Skin warm and dry. Normal skin color. Normal skin turgor. Extremities: No lower extremity edema. No calf tenderness PICC line in right arm unable to flush Neuro: Oriented X 3. No motor deficit. No sensory deficit.No cerebellar signs , cranial nerves II-XII intact Medications Administered Discontinued Medications Generic Name Dose Route Start Last Admin Trade Name Raina PRN Reason Stop Dose Admin Alteplase, Recombinant 2 mg 12/04/24 21:01 12/04/24 21:24 Alteplase Cath Clear 2 Mg/2 Ml Vial INTRACATH 12/04/24 21:02 2 mg ONCE ONE Administration Alteplase, Recombinant 2 mg 12/04/24 22:38 12/04/24 23:16 Alteplase Cath Clear 2 Mg/2 Ml Vial INTRACATH 12/04/24 22:39 2 mg ONCE ONE Administration Medical Decision Making Medical Decision Making [facility] Narrative: Patient with occluded PICC line which he used it for TPN we tried Alteplace 2 mg twice without significant result patient advised to follow up with surgeon tomorrow as they might be removing the PICC line earlier and patient advised to drink plenty of fluids meanwhile Lab Data [facility] Lab Attestation statement: I reviewed the patient's lab results. 12/04/24 19:21 12/04/24 19:21 Labs: Lab Results 12/04/24 Range/Units 19:21 WBC 7.2 (4.8-10.8) X10*3/uL RBC 3.53 L (4.60-5.80) X10*6/uL Hgb 11.0 L (14.0-18.0) g/dl Hct 33.3 L (42.0-52.0) % MCV 94.3 (80.0-98.0) fL MCH 31.2 (27.0-33.0) pg MCHC 33.0 (31.0-36.0) g/dl RDW 13.6 (11.0-16.0) % Plt Count 303 (160-400) X10*3/uL MPV 10.0 (9.4-12.4) fL Immature Gran % (Auto) 0.3 (0.0-0.4) % Neut % (Auto) 75.6 H (45-73) % Lymph % (Auto) 12.7 L (20-40) % [place] % (Auto) 8.9 (2-11) % Eos % (Auto) 2.1 (0-4) % Baso % (Auto) 0.4 (0-2) % Lymph # (Auto) 0.9 L (1.2-4.9) X10*3/uL [place] # (Auto) 0.6 (0.1-1.2) X10*3/uL Eos # (Auto) 0.2 (0.0-0.4) X10*3/uL Baso # (Auto) 0.0 (0.0-0.2) X10*3/uL Abs Immat Gran (auto) 0.02 (0.00-0.03) X10*3/uL Absolute Neuts (auto) 5.4 (2.0-8.3) x10*3/uL Absolute Nucleated RBC 0.000 (0.0-0.012) X10*3/uL Nucleated RBC % (auto) 0.0 (0.0-0.2) /100WBC Sodium 140 (135-145) mmol/L Potassium 4.3 (3.3-5.1) mmol/L Chloride 104 (96-108) mmol/L Carbon Dioxide 26 (22-29) mmol/L Anion Gap 14 (12-20) BUN 25 H (9-16) mg/dL Creatinine 0.92 (0.5-1.4) mg/dL Estim Creat Clear Calc 62.4 Estimated GFR > 60 Random Glucose 82 (60-115) mg/dL Calcium 9.0 (8.4-10.2) mg/dL Total Bilirubin 0.7 (0.0-1.0) mg/dL AST 29 (5-37) U/L ALT 38 (0-40) U/L Alkaline Phosphatase 98 (39-117) U/L Total Protein 7.4 (6.5-8.0) g/dL Albumin 4.3 (3.5-5.0) g/dL Discharge Plan Discharge Clinical Impression: Occluded PICC line Patient Disposition: Home, Self-Care Instructions: PICC (Peripherally Inserted Central Catheter) (DC) Additional Instructions: We were unable to open occluded PICC line Follow up with your surgeon tomorrow for further care of the PICC line Interventions: ED Discharge Assessment Last Done: 12/05/24 00:24 Discharge Date/Time: 12/05/24 00:25 Print Language: Kazakh
[2024-12-04] MEDS: Alteplase Cath Clear 2 MG/2 ML VIAL INTRACATH ×2 (21:24→23:16)
[2024-12-04 22:05] VITALS: BP 110/57; PULSE 60; RESP 16; TEMP 36.8; O2SAT 100
--- NOTE | 2024-12-04 22:52 | PC.NURSE ---
Awaiting med from pharmacy.
--- NOTE | 2024-12-04 23:05 | PC.NURSE ---
Report given to SHAHRIAR Prieto.
[2024-12-05 00:24] VITALS: BP 110/57; PULSE 60; RESP 16; TEMP 36.8; O2SAT 100
== END 2024-12-05 00:25 | disposition home or self-care (01) ==
PROVIDERS: Registered Nurse Emergency; Emergency Provider Internal Medicine; PCP Nurse Practitioner Family
DX: T82.594A Other mechanical complication of infusion catheter, initial encounter (principal); Y82.8 Other medical devices associated with adverse incidents; Y92.239 Unspecified place in hospital as the place of occurrence of the external cause
CPT/HCPCS: 36415; 71045; 80053; 85025; 99283; 99284; J2997

== ENCOUNTER → 2024-12-04 19:08 | Outpatient (BNV) | payer OTHER, SELFPAY | PROVIDERS: PCP Nurse Practitioner Family; Visit Provider Radiology Diagnostic Radiology | DX: T82.898A Other specified complication of vascular prosthetic devices, implants and grafts, initial encounter (principal) | CPT/HCPCS: 71045 ==